=== PATIENT | female | born 1950 | race Caucasian/White ===

== ENCOUNTER 2019-11-04 09:09 | Outpatient (CLI) | payer MEDICARE, SELFPAY ==
[2019-11-04 09:26] LABS: Basophils Absolute Auto 0.02 K/mm3 (0.00-0.10); Basophils Percent Auto 0.4 % (0.0-1.0); Eosinophils Absolute Auto 0.19 K/mm3 (0.02-0.50); Eosinophils Percent Auto 3.4 % (1.0-6.0); Hematocrit 34.2 % (35.0-42.0); Immature Granulocyte Absolute 0.03 K/mm3 (0.00-0.00); Immature Granulocyte Percent A 0.5 % (0.0-0.0); Lymphocytes Absolute Auto 1.78 K/mm3 (1.10-4.50); Lymphocytes Percent Auto 31.5 % (18.0-42.0); Mean Corpuscular HGB Conc 32.2 g/dL (32.0-36.0); Mean Corpuscular Hemoglobin 33.6 pg (27.0-31.0); Mean Corpuscular Volume 104.6 fL (78.0-102.0); Mean Platelet Volume 9.2 fl (9.2-11.8); Monocytes Absolute Auto 0.72 K/mm3 (0.10-0.90); Monocytes Percent Auto 12.7 % (2.0-11.0); Neutrophils Absolute Auto 2.9 K/mm3 (1.7-7.2); Neutrophils Percent Auto 51.5 % (50.0-70.0); Platelet Count Result 148 K/mm3 (150-420); Red Blood Count 3.27 M/mm3 (4.20-5.40); Red Cell Distribution Width 13.9 % (11.6-14.4); White Blood Count 5.7 K/mm3 (4.8-10.8)
[2019-11-04 10:09] LABS: Alanine Aminotransferase 8 U/L (14-59); Albumin Level 3.4 g/dL (3.4-5.0); Alkaline Phosphatase 100 U/L (46-116); Anion Gap 6.1 mmol/L (7-16); Aspartate Amino Transferase 15 U/L (15-37); Bilirubin,Total 0.2 mg/dL (0.00-1.00); Blood Urea Nitrogen 44 mg/dL (7-18); Calcium 8.1 mg/dL (8.5-10.1); Carbon Dioxide 33 mmol/L (21-32); Chloride 104 mmol/L (98-108); Cholesterol 175 mg/dL (0-200); Estimated Glomerular Filt Rate 39; Glucose 84 mg/dL (70-99); HDL Direct 43 mg/dL (40-60); LDL Cholesterol Calculated 119 mg/dL (<130); Osmolality Calculated 296 mOsm/kg (285-295); Potassium 5.1 mmol/L (3.5-5.1); Sodium 138 mmol/L (136-145); Thyroid Stimulating Hormone 9.18 uIU/mL (0.36-3.74); Total Protein 6.3 g/dL (6.4-8.2); Triglycerides 67 mg/dL (0-150)
[2019-11-06 09:10] LABS: Vitamin D 25 Hydroxy 15 ng/mL (30-100)
== END 2019-11-04 09:10 | disposition home or self-care (01) ==
LOC: CHSLAB 09:13
PROVIDERS: PCP Nurse Practitioner Family; Visit Provider Nurse Practitioner Family
DX: E03.9 Hypothyroidism, unspecified (principal); I10 Essential (primary) hypertension; E55.9 Vitamin D deficiency, unspecified
CPT/HCPCS: 36415; 80053; 80061; 82306; 84443; 85025

== ENCOUNTER 2020-01-12 14:56 | Outpatient (CLI) | payer MEDICARE, MEDICAID, SELFPAY ==
--- NOTE | ~2020-01-12 | XR_ITS ---
EXAMINATION: XR hip RT min 2V EXAM DATE: 01/12/2020 15:25 INDICATION: Fall. Right hip pain. TECHNIQUE: Right hip frontal, 'frog leg' projections for interpretation. Comparison is made to prior examination from 04/29/2014. FINDINGS: Smooth right hip femoral head contour, no radiographic evidence of avascular necrosis. The re is mild right hip primary osteoarthritis. There are no acute fractures or dislocations identified. There is no subcutaneous gas. The soft tissue is unremarkable. Right common and probably interna l iliac arterial stent. There is moderate bilateral sacroiliac joint primary osteoarthritis. IMPRESSION: Mild right hip osteoarthritis. Reviewed, dictated and finalized at location A.
[2020-01-12 15:13] LABS: Basophils Absolute Auto 0.03 K/mm3 (0.00-0.10); Basophils Percent Auto 0.6 % (0.0-1.0); Eosinophils Absolute Auto 0.08 K/mm3 (0.02-0.50); Eosinophils Percent Auto 1.6 % (1.0-6.0); Hematocrit 34.7 % (35.0-42.0); Hemoglobin 11.4 g/dL (11.7-13.8); Immature Granulocyte Absolute 0.02 K/mm3 (0.00-0.00); Immature Granulocyte Percent A 0.4 % (0.0-0.0); Lymphocytes Absolute Auto 1.38 K/mm3 (1.10-4.50); Lymphocytes Percent Auto 28.4 % (18.0-42.0); Mean Corpuscular HGB Conc 32.9 g/dL (32.0-36.0); Mean Corpuscular Hemoglobin 33.6 pg (27.0-31.0); Mean Corpuscular Volume 102.4 fL (78.0-102.0); Mean Platelet Volume 8.9 fl (9.2-11.8); Monocytes Absolute Auto 0.61 K/mm3 (0.10-0.90); Monocytes Percent Auto 12.6 % (2.0-11.0); Neutrophils Absolute Auto 2.7 K/mm3 (1.7-7.2); Neutrophils Percent Auto 56.4 % (50.0-70.0); Platelet Count Result 148 K/mm3 (150-420); Red Blood Count 3.39 M/mm3 (4.20-5.40); Red Cell Distribution Width 12.9 % (11.6-14.4); White Blood Count 4.9 K/mm3 (4.8-10.8)
[2020-01-12 16:15] LABS: Albumin Level 3.3 g/dL (3.4-5.0); Alkaline Phosphatase 98 U/L (46-116); Anion Gap 7.6 mmol/L (7-16); Aspartate Amino Transferase 9 U/L (15-37); Bilirubin,Total 0.3 mg/dL (0.00-1.00); Blood Urea Nitrogen 36 mg/dL (7-18); Calcium 8.7 mg/dL (8.5-10.1); Carbon Dioxide 35 mmol/L (21-32); Chloride 97 mmol/L (98-108); Estimated Glomerular Filt Rate 40; Glucose 83 mg/dL (70-99); Magnesium 2.1 mg/dL (1.8-2.4); Osmolality Calculated 287 mOsm/kg (285-295); Potassium 4.6 mmol/L (3.5-5.1); Sodium 135 mmol/L (136-145); Total Protein 6.5 g/dL (6.4-8.2)
[2020-01-12 16:27] LABS: Cholesterol 164 mg/dL (0-200); HDL Direct 38 mg/dL (40-60); LDL Cholesterol Calculated 104 mg/dL (<130); Triglycerides 108 mg/dL (0-150)
[2020-01-12 16:27] LABS: Alanine Aminotransferase 8 U/L (14-59)
[2020-01-12 16:28] LABS: Thyroid Stimulating Hormone 0.85 uIU/mL (0.36-3.74); Vitamin B12 348 pg/mL (193-986)
[2020-01-17 20:24] LABS: Vitamin D 25 Hydroxy 18 ng/mL (30-100)
== END 2020-01-12 14:57 | disposition home or self-care (01) ==
LOC: CHSLAB 15:00
PROVIDERS: PCP Nurse Practitioner Family; Visit Provider Nurse Practitioner Family
DX: M25.551 Pain in right hip (principal); E55.9 Vitamin D deficiency, unspecified; R29.6 Repeated falls; R53.83 Other fatigue; I10 Essential (primary) hypertension
CPT/HCPCS: 36415; 73502; 80053; 80061; 82306; 82607; 83735; 84443; 85025

== ENCOUNTER 2020-02-29 14:14 | Outpatient (CLI) | payer MEDICARE, MEDICAID, SELFPAY ==
--- NOTE | ~2020-02-29 | XR_ITS ---
EXAMINATION: XR shoulder RT min 2V EXAM DATE: 02/29/2020 14:54 INDICATION: No known recent injury provided at this time. Pain of the right shoulder. TECHNIQUE: The following right shoulder projections obtained: frontal projection with internal rotati on, frontal projection with external rotation, Grashey, and scapular Y view (4+ views). There is no prior study for comparison. FINDINGS: No evidence of right shoulder rotator cuff calcific tendinosis. There is mild acromiocla vicular joint primary osteoarthritis. There are no acute fractures or dislocations identified. There is no subcutaneous gas. The soft tissue is unremarkable. There are no radiopaque foreign bodies. IMPRESSION: Mild right upper mid clavicular osteoarthritis. Reviewed, dictated and finalized at location A.
--- NOTE | ~2020-02-29 | XR_ITS ---
EXAMINATION: XR hip RT min 2V EXAM DATE: 02/29/2020 14:54 INDICATION: Right hip pain. TECHNIQUE: Right hip frontal, 'frog leg' projections for interpretation. Comparison is made to prior examination from 01/12/2020. FINDINGS: Smooth right hip femoral head contour, no radiographic evidence of avascular necrosis. The re is mild right hip primary osteoarthritis. There are no acute fractures or dislocations identified. There is no subcutaneous gas. The soft tissue is unremarkable. Right iliac stent. IMPRESSION: 1. XR hip RT min 2V exam without acute osseous findings. 2. Mild osteoarthritis. Reviewed, dictated and finalized at location A.
== END 2020-02-29 14:15 | disposition home or self-care (01) ==
LOC: CHSIMG 14:17
PROVIDERS: PCP Family Medicine; Visit Provider Nurse Practitioner Family
DX: M25.511 Pain in right shoulder (principal); M25.551 Pain in right hip
CPT/HCPCS: 73030; 73502

== ENCOUNTER 2020-03-03 14:09 | Outpatient (CLI) | payer MEDICARE, MEDICAID, SELFPAY ==
[2020-03-03 15:18] LABS: Anion Gap 9.7 mmol/L (7-16); Blood Urea Nitrogen 39 mg/dL (7-18); Calcium 8.5 mg/dL (8.5-10.1); Carbon Dioxide 30 mmol/L (21-32); Chloride 102 mmol/L (98-108); Estimated Glomerular Filt Rate 34; Glucose 83 mg/dL (70-99); Osmolality Calculated 290 mOsm/kg (285-295); Potassium 5.7 mmol/L (3.5-5.1); Sodium 136 mmol/L (136-145)
== END 2020-03-03 14:10 | disposition home or self-care (01) ==
LOC: CHSLAB 14:13
PROVIDERS: PCP Family Medicine; Visit Provider Family Medicine
DX: I10 Essential (primary) hypertension (principal)
CPT/HCPCS: 36415; 80048

== ENCOUNTER 2020-07-20 18:41 | Emergency (ER) | payer MEDICARE, MEDICAID, SELFPAY | END 2020-07-20 19:26 | disposition left against medical advice (07) | LOC: CHSED 18:46 | PROVIDERS: Emergency Provider Emergency Medicine; PCP Family Medicine | DX: Z53.8 Procedure and treatment not carried out for other reasons (principal) | CPT/HCPCS: 99199 ==

== ENCOUNTER 2020-07-21 14:50 | Outpatient (CLI) | payer MEDICARE, SELFPAY ==
[2020-07-21 15:20] LABS: SARS-CoV-2 Ag Negative (Negative)
== END 2020-07-21 14:51 | disposition home or self-care (01) ==
LOC: CHSLAB 14:55
PROVIDERS: PCP Physician Assistant; Visit Provider Physician Assistant
DX: B34.9 Viral infection, unspecified (principal); Z20.828 Contact with and (suspected) exposure to other viral communicable diseases
CPT/HCPCS: 87426

== ENCOUNTER 2020-08-15 18:16 | Emergency (ER) | payer MEDICARE, MEDICAID, SELFPAY ==
--- NOTE | ~2020-08-15 | XR_ITS ---
EXAMINATION: XR chest 1V portable EXAM DATE: 08/15/2020 19:17 INDICATION: Cough, lower extremity swelling, wheezing. History of CHF and COPD. TECHNIQUE: Portable AP frontal chest x-ray was obtained. Comparison is made to prior examination from 07/14/19. FINDINGS: The lungs are clear. There are no pleural effusions. Cardiac silhouette is prominent but magnified on this AP technique. There is no pneumothorax suspected. The bones and soft tissues are unremarkable. IMPRESSION: No acute cardiopulmonary findings. Reviewed, dictated and finalized at location A. LE WORKER
[2020-08-15 18:30] VITALS: BP 175/73; PULSE 68; RESP 16; TEMP 36.8; O2SAT 98
--- NOTE | 2020-08-15 18:43 | ED.URI ---
HPI - URI/Sore Throat General Chief Complaint: Upper Respiratory Infection Stated Complaint: SOB cough,sores in nose Time Seen by Provider: 08/15/20 18:43 Source: patient Mode of arrival: ambulatory Limitations: no limitations History of Present Illness HPI Narrative: 69-year-old woman with a history of COPD and congestive heart failure comes to the emergency department complaining of a nonproductive cough, leg swelling and body aches present for the last few days. she also had an episode of vomiting yesterday morning and none since. Patient states that she saw her doctor and was prescribed antibiotic and steroid but her symptoms did not get any better. [Those medications were prescribed on July 20.] She states that her house has been cold because it is poorly insulated and that her landlord is a slum lord. She denies any sick exposures and has had no more shortness of breath than usual, chest pain, fever, diarrhea, abdominal pain or dysuria. She states she currently alternates between 1 and 2 tablets of furosemide daily. she has had the flu vaccine this year. MD elicited complaint: cough and nasal congestion Pertinent past history: COPD Onset (ago): day(s) (3) Consistency: constant and progressively worsening Severity: moderate Description of mucous: clear Able to tolerate fluids by mouth: Yes Exacerbating factors: nothing Relieving factors: nothing Associated symptoms: rhinorrhea, nasal congestion and cough Treatments prior to arrival: none Related Data Home Medications Medication Instructions Recorded Confirmed acetaminophen 650 mg 650 mg PO Q8H 07/01/19 08/15/20 tablet,extended release clopidogrel 75 mg tablet 75 mg PO DAILY 07/01/19 08/15/20 isosorbide mononitrate 30 mg 30 mg PO DAILY 07/01/19 08/15/20 tablet,extended release 24 hr metoprolol succinate 50 mg 50 mg PO DAILY 07/01/19 08/15/20 tablet,extended release 24 hr ranolazine 1,000 mg 1,000 mg PO BID tablet 07/01/19 08/15/20 tablet,extended release,12 hr clonazepam 0.5 mg tablet 0.25 mg PO DAILY tablet 05/02/20 08/15/20 duloxetine 60 mg capsule,delayed 120 mg PO BID cap 05/02/20 08/15/20 release lamotrigine 100 mg tablet 100 mg PO BID 05/02/20 08/15/20 Allergies Allergy/AdvReac Type Severity Reaction Status Date / Time desipramine Allergy Severe Throat Verified 05/04/20 09:56 swelling amlodipine Allergy Intermediate Unknown Verified 05/04/20 09:56 bupropion Allergy Intermediate Hives / Verified 05/04/20 09:56 Red Face Penicillins Allergy Intermediate Unknown Verified 05/04/20 09:56 Wddhlpc-Xvc-Auy Reductase Allergy Intermediate muscle Verified 05/04/20 09:56 Inhibitor pain atorvastatin AdvReac leg cramps Verified 05/04/20 09:56 Contrast Media Allergy Severe Anaphylactic Uncoded 05/04/20 09:56 Shock IV dye Allergy Intermediate Unknown Uncoded 05/04/20 09:56 Sulfonamides Allergy Intermediate Unknown Uncoded 05/04/20 09:56 Review of Systems Constitutional: Constitutional: Denies chills, Denies fatigue, Denies fever(s) and Denies weakness ENT: Denies dysphagia, Reports nasal congestion and Denies sore throat Cardiovascular: Cardiovascular: Denies chest pain Respiratory: Respiratory: Reports chest congestion, Reports cough, Reports dyspnea ( Chronic) and Reports wheezing Gastrointestinal: Gastrointestinal: Denies abdominal pain, Denies diarrhea, Denies nausea and Reports vomiting Genitourinary: Genitourinary: Denies hematuria, Denies nocturia and Denies dysuria Musculoskeletal: Musculoskeletal: Denies arthralgias and Denies joint swelling Integumentary/Breasts: Skin/Breast: Denies pruritus, Denies erythema and Denies rash Neurologic: Denies vertigo, Denies dizziness and Denies syncope Endocrine: Endocrine: Denies polydipsia and Denies polyuria Hematologic/Lymphatic: Hematologic/Lymphatic: Denies easy bleeding and Denies easy bruising Allergic/Immunologic: Allergic/Immunologic: Denies lip swelling and Denies
--- NOTE | 2020-08-15 18:58 | ECG_ITS ---
Measurements Intervals [place] Rate: 61 P: 66 MD: 127 QRS: 13 QRSD: 92 T: 69 QT: 469 QTc: 473 Interpretive Statements SINUS RHYTHM PROLONGED QT INTERVAL ABNORMAL ECG Electronically Signed On 08-15-2020 19:25:08 NUMERICAL CONTROL PROGRAMMER by Taiwo Delarosa D.O.
[2020-08-15 19:00] LABS: Influenza Control Valid (Valid); SARS-CoV-2 Ag Negative (Negative)
[2020-08-15 19:11] LABS: Basophils Absolute Auto 0.03 K/mm3 (0.00-0.10); Basophils Percent Auto 0.5 % (0.0-1.0); Eosinophils Absolute Auto 0.09 K/mm3 (0.02-0.50); Eosinophils Percent Auto 1.5 % (1.0-6.0); Hematocrit 32.8 % (35.0-42.0); Hemoglobin 10.6 g/dL (11.7-13.8); Immature Granulocyte Absolute 0.03 K/mm3 (0.00-0.00); Immature Granulocyte Percent A 0.5 % (0.0-0.0); Lymphocytes Absolute Auto 1.82 K/mm3 (1.10-4.50); Lymphocytes Percent Auto 30.1 % (18.0-42.0); Mean Corpuscular HGB Conc 32.3 g/dL (32.0-36.0); Mean Corpuscular Hemoglobin 33.2 pg (27.0-31.0); Mean Corpuscular Volume 102.8 fL (78.0-102.0); Monocytes Absolute Auto 0.83 K/mm3 (0.10-0.90); Monocytes Percent Auto 13.7 % (2.0-11.0); Neutrophils Absolute Auto 3.2 K/mm3 (1.7-7.2); Neutrophils Percent Auto 53.7 % (50.0-70.0); Platelet Count Result 146 K/mm3 (150-420); Red Blood Count 3.19 M/mm3 (4.20-5.40); Red Cell Distribution Width 12.8 % (11.6-14.4)
[2020-08-15 19:26] LABS: Partial Thromboplastin Time 27.6 SEC (23.90-30.70); Prothrombin Time 10.6 Seconds (9.50-12.10)
[2020-08-15 19:30] LABS: BNP 373 pg/mL (0-100)
[2020-08-15 19:31] LABS: Alanine Aminotransferase 10 U/L (14-59); Albumin Level 3.5 g/dL (3.4-5.0); Alkaline Phosphatase 91 U/L (46-116); Anion Gap 7 mmol/L (8-16); Aspartate Amino Transferase 13 U/L (15-37); Bilirubin,Total 0.4 mg/dL (0.00-1.00); Blood Urea Nitrogen 26 mg/dL (7-18); Calcium 9.3 mg/dL (8.5-10.1); Carbon Dioxide 28 mmol/L (21-32); Chloride 100 mmol/L (98-108); Estimated Glomerular Filt Rate 44; Glucose 85 mg/dL (70-99); Osmolality Calculated 283 mOsm/kg (285-295); Potassium 4.2 mmol/L (3.5-5.1); Sodium 135 mmol/L (136-145); Troponin I 12.7 ng/L (0.00-60.4)
[2020-08-15 20:05] LABS: Add Urine Microscopic? YES; Appearance Urine Clear (Clear); Bilirubin Urine Negative (Negative); Blood Urine Negative (Negative); Color Urine Yellow (Yellow); Glucose Urine UA Negative (Negative); Ketones Urine Negative (Negative); Leukocyte Esterase Ur Trace LEU/UL (Negative); Nitrate Urine Negative (Negative); Protein Urine Negative (Negative); Specific Grav Ur 1.015 (1.010-1.020); Urobilinogen Urine 0.2 mg/dL (0.2-1.0)
[2020-08-15 20:10] LABS: Bacteria Urine Trace /hpf; RBC Urine 0-2 /hpf (0-2); Squamous Epithelial Cell Urine Few /hpf (Few); WBC Urine 0-3 /hpf (0-3)
[2020-08-15 20:13] VITALS: BP 175/56; PULSE 63; RESP 20; TEMP 36.9; O2SAT 96
== END 2020-08-15 20:33 | disposition home or self-care (01) ==
PROVIDERS: Emergency Provider Emergency Medicine; PCP Physician Assistant
DX: J20.9 Acute bronchitis, unspecified (principal); R60.0 Localized edema; I50.9 Heart failure, unspecified; J44.9 Chronic obstructive pulmonary disease, unspecified; Z86.718 Personal history of other venous thrombosis and embolism; I10 Essential (primary) hypertension; F17.200 Nicotine dependence, unspecified, uncomplicated
CPT/HCPCS: 36415; 71045; 80053; 81001; 83880; 84484; 85025; 85610; 85730; 87426; 87804; 93005; 99283; 99284; C9803

== ENCOUNTER 2020-11-17 14:01 | Outpatient (NON) | payer MEDICARE, SELFPAY ==
[2020-11-17 14:19] LABS: Hematocrit 33.4 % (35.0-42.0); Hemoglobin 10.6 g/dL (11.7-13.8); Mean Corpuscular HGB Conc 31.7 g/dL (32.0-36.0); Mean Corpuscular Hemoglobin 33.4 pg (27.0-31.0); Mean Corpuscular Volume 105.4 fL (78.0-102.0); Mean Platelet Volume 10.2 fl (9.2-11.8); Platelet Count Result 217 K/mm3 (150-420); Red Blood Count 3.17 M/mm3 (4.20-5.40); Red Cell Distribution Width 14.5 % (11.6-14.4); White Blood Count 5.9 K/mm3 (4.8-10.8)
[2020-11-17 14:34] LABS: BNP 563 pg/mL (0-100)
[2020-11-17 15:10] LABS: Atypical Lymphocytes Present
[2020-11-17 15:11] LABS: Band Neutrophils Percent 0 % (0-6); Eosinophils Percent Manual 12 % (1-6); Lymphocytes Absolute Manual 1.41 K/mm3 (1.1-4.5); Lymphocytes Percent Manual 24 % (18-44); Monocytes Absolute Manual 0.35 K/mm3 (0.1-0.90); Monocytes Percent Manual 6 % (3-9); Neutrophils Absolute Manual 3.42 K/mm3 (1.7-7.2); Neutrophils Percent Manual 58 % (46-73); Platelet Estimate Adequate (Adequate); Total Cells Counted 100
== END 2020-11-17 14:02 | disposition home or self-care (01) ==
LOC: CHSLAB 14:02
PROVIDERS: Visit Provider Physician Assistant
DX: I10 Essential (primary) hypertension (principal); I50.9 Heart failure, unspecified
CPT/HCPCS: 36415; 83880; 85025; 85027

== ENCOUNTER 2021-03-09 12:26 | Outpatient (CLI) | payer MEDICARE, MEDICAID, SELFPAY ==
--- NOTE | ~2021-03-09 | CT_ITS ---
EXAMINATION: CT lung screening DATE: 03/09/2021 13:00 INDICATION: Personal history of tobacco dependence, current smoker with 47 pack year history TECHNIQUE: Computed tomography (CT) of the chest was performed without intravenous contrast. The dose -length product (DLP) was 93.31 mGy-cm. Automated exposure control and iterative reconstruction techn ique were employed. COMPARISON: None FINDINGS: There is mild emphysema. Minimal atelectasis is present in the lung bases. No suspicious pu lmonary nodules are identified. The lungs are free of focal airspace opacities. There is no pleural e ffusion or pneumothorax. No pathologically enlarged thoracic lymph nodes are identified. The heart si ze is normal. There is enlargement of the main and central pulmonary arteries, consistent with pulmon mayda hypertension. Calcified coronary artery atherosclerosis is noted. There is moderate thoracic spon dylosis. IMPRESSION: 1. Lung-RADS category 1: Negative. Continue annual screening with noncontrast low-dose chest CT in 12 months. Reviewed, dictated and finalized at location A. IMPRESSION: 1. Lung-RADS category 1: Negative. Continue annual screening with noncontrast l ow-dose chest CT in 12 months.
== END 2021-03-09 12:27 | disposition home or self-care (01) ==
LOC: CHSIMG 12:33
PROVIDERS: PCP Physician Assistant; Visit Provider Physician Assistant
DX: Z12.2 Encounter for screening for malignant neoplasm of respiratory organs (principal); Z87.891 Personal history of nicotine dependence
CPT/HCPCS: 71271

== ENCOUNTER 2021-04-24 15:41 | Outpatient (CLI) | payer MEDICARE, SELFPAY ==
[2021-04-24 17:13] LABS: SARS-CoV-2 RNA PCR Negative (Negative)
== END 2021-04-24 15:42 | disposition home or self-care (01) ==
LOC: CHSLAB 15:44
PROVIDERS: PCP Physician Assistant; Visit Provider Physician Assistant
DX: Z20.822 Contact with and (suspected) exposure to COVID-19 (principal)
CPT/HCPCS: C9803; U0003; U0005

== ENCOUNTER 2021-08-30 08:54 | Outpatient (CLI) | payer MEDICARE, SELFPAY ==
[2021-08-31 21:56] LABS: SARS-CoV-2 RNA PCR Negative
== END 2021-08-30 08:55 | disposition home or self-care (01) ==
LOC: CHSLAB 08:58
PROVIDERS: PCP Physician Assistant; Visit Provider Physician Assistant
DX: B34.9 Viral infection, unspecified (principal); Z20.822 Contact with and (suspected) exposure to COVID-19
CPT/HCPCS: C9803; U0003; U0005

== ENCOUNTER 2021-09-06 09:11 | Emergency (ER) | payer MEDICARE, MEDICAID, SELFPAY ==
--- NOTE | ~2021-09-06 | CT_ITS ---
EXAMINATION: CT brain wo con, CT facial bones wo con EXAM DATE: 09/06/2021 09:55 INDICATION: Head Injury Fall,Rt Side Hi/Face,?Confusion/Slow To Respond. TECHNIQUE: Spiral CT of the head was performed without contrast. Axial, coronal and sagittal images were reviewed. Spiral CT of the facial bones was performed without contrast. Axial images were revie wed. Coronal and sagittal reformatted images were also reviewed. The dose-length product (DLP) for this examination was 605.33 (accession [id number]), 422.92 (accession [id number]) mGy-cm. Th e exposure was tailored according to patient size, and iterative reconstruction (ASIR) was used as ad ditional dose reduction technique. Comparison is made to prior examination from 12/17/2016. FINDINGS: HEAD CT: There is no acute intraparenchymal hemorrhage. No evidence of intraparenchymal brain mass lesion. No evidence of acute infarction. There is mild to moderate periventricular and subcortical h ypodensity, nonspecific but probably related to small vessel ischemic disease. There is mild to mod erate prominence of the sulci and ventricles related to cerebral atrophy. There is no mass effect o r midline shift. There is no obstructive hydrocephalus suspected. There are no extra-axial collectio ns. There are no calvarial acute fractures. FACIAL CT: There are no displaced acute nasal bone fractures. The mandible, sinuses and orbits are i ntact. The orbits, globes and extraocular muscles are unremarkable. Soft tissue is unremarkable. The visualized sinuses and mastoid air cells are well aerated. Advanced upper cervical arthropathy. IMPRESSION: 1. No acute intracranial findings. 2. No acute facial fracture. 3. Microangiopathy and atrophy. Reviewed, dictated and finalized at location A. ETES CLINICAL MANAGER IMPRESSION: 1. No acute intracranial findings. 2. No acute facial fracture. 3. Microangiopathy and atrophy.
[2021-09-06 09:25] VITALS: BP 172/53; PULSE 45; RESP 20; TEMP 36.1; O2SAT 98
--- NOTE | 2021-09-06 09:28 | ED.FALL ---
HPI - Fall General Chief Complaint: Fall Stated Complaint: AMBULANCE Time Seen by Provider: 09/06/21 09:29 Source: patient and family Mode of arrival: EMS Limitations: no limitations History of Present Illness HPI Narrative: this is a 71-year-old female who presents from home after she had a ground level fall, the patient states that she tripped on her shoe laces and struck the side of her head and right side of her face there is some some bruising on the right side of her cheek otherwise there is no neurological deficits the patient is not complaining of any pain currently, there is no nausea vomiting no shortness of breath no fever chills. Patient states that no other injuries. There is no dysuria no urinary frequency no abdominal pain no chest pain no shortness of breath no flank pain. MD complaint: fall Onset (ago): hour(s) Fall from: standing Fall witnessed: no Place fall occurred: home Loss of consciousness: none Prolonged down time: no Symptoms prior to fall: none Context: tripped/slipped Related Data Home Medications Medication Instructions Recorded Confirmed acetaminophen 650 mg 650 mg PO Q8H 07/01/19 08/15/20 tablet,extended release clopidogrel 75 mg tablet 75 mg PO DAILY 07/01/19 08/15/20 isosorbide mononitrate 30 mg 30 mg PO DAILY 07/01/19 08/15/20 tablet,extended release 24 hr metoprolol succinate 50 mg 50 mg PO DAILY 07/01/19 08/15/20 tablet,extended release 24 hr ranolazine 1,000 mg 1,000 mg PO BID tablet 07/01/19 08/15/20 tablet,extended release,12 hr clonazepam 0.5 mg tablet 0.25 mg PO DAILY tablet 05/02/20 08/15/20 duloxetine 60 mg capsule,delayed 120 mg PO BID cap 05/02/20 08/15/20 release lamotrigine 100 mg tablet 100 mg PO BID 05/02/20 08/15/20 levothyroxine 175 mcg PO DAILY 09/06/21 Allergies Allergy/AdvReac Type Severity Reaction Status Date / Time desipramine Allergy Severe Throat Verified 09/06/21 10:39 swelling amlodipine Allergy Intermediate Unknown Verified 09/06/21 10:39 bupropion Allergy Intermediate Hives / Verified 09/06/21 10:39 Red Face Penicillins Allergy Intermediate Unknown Verified 09/06/21 10:39 Yvfksjf-ZJI-LpD Reductase Allergy Intermediate muscle Verified 09/06/21 10:39 Inhibitor pain [Cxvaidq-Mlj-Jjp Reductase Inhibitor] atorvastatin AdvReac leg cramps Verified 09/06/21 10:39 Contrast Media Allergy Severe Anaphylactic Uncoded 09/06/21 10:39 Shock IV dye Allergy Intermediate Unknown Uncoded 09/06/21 10:39 Sulfonamides Allergy Intermediate Unknown Uncoded 09/06/21 10:39 Review of Systems Review of Systems: All systems reviewed & are unremarkable except as noted in HPI and below PMFSH Past Medical History Medical History (Updated 09/06/21 @ 10:42 by Kushal Phillips MD) Bipolar disorder Congestive heart failure Conjunctivitis COPD (chronic obstructive pulmonary disease) COPD with acute exacerbation Fibromyalgia Generalized anxiety disorder Hand joint pain History of DVT (deep vein thrombosis) History of [place] (myocardial infarction) 3-4 Stents HTN (hypertension) Maxillary sinusitis, acute Myocardial infarct, old Nicotine dependence Overweight Parkinson disease RUQ abdominal pain Shortness of breath Sleep apnea Surgical History Surgical History History of adenoidectomy History of intravascular stent placement 3-[address], per patient History of tonsillectomy Hx of hysterectomy Hx of tubal ligation Family History Family History Mother Depression Kidney disease Carcinoma of colon Heart disease Diabetes mellitus Father Alcoholism Social History Social History Social History: , patient enjoys singing Smoking packs per day: 1 Smoking cigarettes per day: 20.0 Years smoked: 47 Smoking pack-years: 47.00 Smoking sta
[2021-09-06 10:08] LABS: Basophils Absolute Auto 0.02 K/mm3 (0.00-0.10); Basophils Percent Auto 0.3 % (0.0-1.0); Eosinophils Absolute Auto 0.04 K/mm3 (0.02-0.50); Eosinophils Percent Auto 0.6 % (1.0-6.0); Hemoglobin 11.6 g/dL (11.7-13.8); Immature Granulocyte Absolute 0.04 K/mm3 (0.00-0.00); Immature Granulocyte Percent A 0.6 % (0.0-0.0); Lymphocytes Absolute Auto 1.33 K/mm3 (1.10-4.50); Lymphocytes Percent Auto 18.9 % (18.0-42.0); Mean Corpuscular HGB Conc 33.1 g/dL (32.0-36.0); Mean Corpuscular Hemoglobin 33.4 pg (27.0-31.0); Mean Corpuscular Volume 100.9 fL (78.0-102.0); Mean Platelet Volume 8.7 fl (9.2-11.8); Monocytes Absolute Auto 0.67 K/mm3 (0.10-0.90); Monocytes Percent Auto 9.5 % (2.0-11.0); Neutrophils Percent Auto 70.1 % (50.0-70.0); Platelet Count Result 130 K/mm3 (150-420); Red Blood Count 3.47 M/mm3 (4.20-5.40); White Blood Count 7.1 K/mm3 (4.8-10.8)
[2021-09-06 10:24] LABS: Alanine Aminotransferase 9 U/L (14-59); Albumin Level 3.8 g/dL (3.4-5.0); Alkaline Phosphatase 84 U/L (46-116); Anion Gap 5 mmol/L (8-16); Aspartate Amino Transferase 16 U/L (15-37); Bilirubin,Total 0.7 mg/dL (0.00-1.00); Blood Urea Nitrogen 22 mg/dL (7-18); Calcium 8.8 mg/dL (8.5-10.1); Carbon Dioxide 33 mmol/L (21-32); Chloride 94 mmol/L (98-108); Estimated Glomerular Filt Rate 36; Glucose 97 mg/dL (70-99); Osmolality Calculated 277 mOsm/kg (285-295); Potassium 4.3 mmol/L (3.5-5.1); Sodium 132 mmol/L (136-145); Total Protein 7.4 g/dL (6.4-8.2)
[2021-09-06 10:55] VITALS: BP 196/73; PULSE 48; RESP 20; TEMP 36.2; O2SAT 97
== END 2021-09-06 11:07 | disposition home or self-care (01) ==
PROVIDERS: Emergency Provider Emergency Medicine; PCP Physician Assistant
DX: S00.83XA Contusion of other part of head, initial encounter (principal); W19.XXXA Unspecified fall, initial encounter; I50.9 Heart failure, unspecified; J44.9 Chronic obstructive pulmonary disease, unspecified; Z86.718 Personal history of other venous thrombosis and embolism; I10 Essential (primary) hypertension; F17.200 Nicotine dependence, unspecified, uncomplicated
CPT/HCPCS: 36415; 70450; 70486; 80053; 85025; 99282; 99284

== ENCOUNTER 2021-09-07 17:11 | Inpatient (IN) | payer MEDICARE, MEDICAID, SELFPAY ==
--- NOTE | ~2021-09-07 | XR_ITS ---
XR pelvis 1-2V DATE: 09/07/2021 18:10 INDICATION: Right hip pain after fall today TECHNIQUE: AP pelvis COMPARISON: 02/29/2020 right hip FINDINGS: No pelvic fracture or bone destruction is detected. The pubic symphysis and sacroiliac join ts are intact. Hip joint spaces are symmetric and relatively well preserved. No right hip fracture or dislocation is evident. Right common and external iliac vascular stents. There is extensive calcification of the included dis henrry abdominal aorta and left iliac arteries as well as bilateral femoral artery calcification. IMPRESSION: No right hip fracture is evident on this limited single AP pelvis view Reviewed, dictated and finalized at location A. MAL CUTTER HELPER IMPRESSION: No right hip fracture is evident on this limited single AP pelvis v iew
--- NOTE | ~2021-09-07 | XR_ITS ---
XR chest 1V portable DATE: 09/07/2021 18:09 INDICATION: Fall. Weakness. TECHNIQUE: Portable AP chest on 09/07/2021 at 1804 hours COMPARISON: 08/15/2020 portable AP chest 03/09/2021 CT lung screening FINDINGS: Normal heart size. Aortic arch calcification. No hilar or mediastinal enlargement is eviden t. No pulmonary infiltrate or consolidation, pleural effusion or pulmonary vascular congestion or pneumo thorax is detected. Degenerative spurring of the thoracic spine IMPRESSION: No active cardiopulmonary disease Aortic calcification Reviewed, dictated and finalized at location A. AL MANAGER
--- NOTE | 2021-09-07 17:18 | ED.FALL ---
HPI - Fall General Chief Complaint: Fall Stated Complaint: ambulance Time Seen by Provider: 09/07/21 17:18 Source: patient Mode of arrival: ambulatory History of Present Illness HPI Narrative: 71-year-old female with a history of hypertension, coronary artery status post stents, CHF, COPD, fibromyalgia generalized anxiety disorder, DVT, YULIYA, parkinsonism falls presented to the ER after a fall yesterday with right facial bruising for which she had a CT of the head and face which did not show any acute findings. Patient presents to the ER after she fell on her buttocks and presents with -- right hip pain. patient has normal range of motion. -- patient is noted to have elevated blood pressure of 227/81. -- Complains of dizziness without any focal neuro deficit. No head injury. No neck or back pain. MD complaint: fall Onset (ago): hour(s) ( Fell 1-1/2 hours ago.) Fall from: standing Fall witnessed: no Place fall occurred: home Loss of consciousness: none Prolonged down time: no Symptoms prior to fall: none Context: history of frequent falls Location of injury: other ( Right hip pain ) Severity: mild Associated symptoms (after fall): other ( complains of dizziness.) Related Data Home Medications Medication Instructions Recorded Confirmed acetaminophen 650 mg 650 mg PO Q8H 07/01/19 09/07/21 tablet,extended release clopidogrel 75 mg tablet 75 mg PO DAILY 07/01/19 09/07/21 isosorbide mononitrate 30 mg 30 mg PO DAILY 07/01/19 09/07/21 tablet,extended release 24 hr metoprolol succinate 50 mg 50 mg PO DAILY 07/01/19 09/07/21 tablet,extended release 24 hr ranolazine 1,000 mg 1,000 mg PO BID tablet 07/01/19 09/07/21 tablet,extended release,12 hr clonazepam 0.5 mg tablet 0.25 mg PO DAILY tablet 05/02/20 09/07/21 duloxetine 60 mg capsule,delayed 120 mg PO BID cap 05/02/20 09/07/21 release lamotrigine 100 mg tablet 100 mg PO BID 05/02/20 09/07/21 levothyroxine 175 mcg PO DAILY 09/06/21 09/07/21 Allergies Allergy/AdvReac Type Severity Reaction Status Date / Time desipramine Allergy Severe Throat Verified 09/07/21 17:32 swelling amlodipine Allergy Intermediate Unknown Verified 09/07/21 17:32 bupropion Allergy Intermediate Hives / Verified 09/07/21 17:32 Red Face Penicillins Allergy Intermediate Unknown Verified 09/07/21 17:32 Xzbngnl-EMT-EtX Reductase Allergy Intermediate muscle Verified 09/07/21 17:32 Inhibitor pain [Pqyljrn-Tvt-Hmu Reductase Inhibitor] atorvastatin AdvReac leg cramps Verified 09/07/21 17:32 Contrast Media Allergy Severe Anaphylactic Uncoded 09/06/21 10:39 Shock IV dye Allergy Intermediate Unknown Uncoded 09/06/21 10:39 Sulfonamides Allergy Intermediate Unknown Uncoded 09/06/21 10:39 Review of Systems Review of Systems: All systems reviewed & are unremarkable except as noted in HPI and below Constitutional: Constitutional: Reports as per HPI and Reports no additional constitutional complaints Eyes: Eyes: Reports as per HPI and Reports no additional eye complaints ENT: Reports system reviewed and no additional complaints, except as documented Cardiovascular: Cardiovascular: Reports as per HPI and Reports no additional cardiovascular complaints Respiratory: Respiratory: Reports as per HPI and Reports no additional respiratory complaints Gastrointestinal: Gastrointestinal: Reports as per HPI and Reports no additional gastrointestinal complaints Musculoskeletal: Comments: Right hip pain. Integumentary/Breasts: Comments: Multiple bruises of different ages. She has bruises over her right side of the face and extremities. Neurologic: Reports system reviewed and no additional complaints, except as documented and Reports dizziness Psychiatric: Psychiatric: Reports no additional psychiatric complaints Endocrine: Endocrine: Reports no additional endocrine complaints Hematologic/Lymphatic: Hematologic/Lymphatic: Reports no additional hematologic/lymphatic com
[2021-09-07 17:22] VITALS: BP 227/81; PULSE 58; RESP 18; TEMP 35.7; O2SAT 98
--- NOTE | 2021-09-07 17:47 | ECG_ITS ---
Measurements Intervals [place] Rate: 56 P: 74 MD: 113 QRS: 25 QRSD: 95 T: 49 QT: 460 QTc: 447 Interpretive Statements SINUS BRADYCARDIA WITH SHORT MD INTERVAL BORDERLINE ST ABNORMALITY- INF/HIGH LAT LEADS BASELINE ARTIFACT- I, II, AVR, AVL, AVF, V2-V3 BORDERLINE ECG Electronically Signed On 09-07-2021 20:57:27 PROJECT ENG by Taiwo Delarosa D.O.
[2021-09-07] MEDS: cloNIDine HCL 0.1 MG TABLET PO (17:55)
[2021-09-07 18:04] LABS: Basophils Absolute Auto 0.03 K/mm3 (0.00-0.10); Basophils Percent Auto 0.5 % (0.0-1.0); Eosinophils Absolute Auto 0.06 K/mm3 (0.02-0.50); Hematocrit 33.9 % (35.0-42.0); Hemoglobin 11.3 g/dL (11.7-13.8); Immature Granulocyte Absolute 0.02 K/mm3 (0.00-0.00); Immature Granulocyte Percent A 0.3 % (0.0-0.0); Lymphocytes Absolute Auto 1.53 K/mm3 (1.10-4.50); Lymphocytes Percent Auto 25.9 % (18.0-42.0); Mean Corpuscular HGB Conc 33.3 g/dL (32.0-36.0); Mean Corpuscular Hemoglobin 33.3 pg (27.0-31.0); Mean Platelet Volume 9.5 fl (9.2-11.8); Monocytes Absolute Auto 0.67 K/mm3 (0.10-0.90); Monocytes Percent Auto 11.3 % (2.0-11.0); Neutrophils Absolute Auto 3.6 K/mm3 (1.7-7.2); Platelet Count Result 136 K/mm3 (150-420); Red Blood Count 3.39 M/mm3 (4.20-5.40); Red Cell Distribution Width 14.8 % (11.6-14.4); White Blood Count 5.9 K/mm3 (4.8-10.8)
[2021-09-07 18:25] LABS: Alanine Aminotransferase 17 U/L (14-59); Albumin Level 3.9 g/dL (3.4-5.0); Alkaline Phosphatase 83 U/L (46-116); Anion Gap 8 mmol/L (8-16); Aspartate Amino Transferase 20 U/L (15-37); Bilirubin,Total 0.6 mg/dL (0.00-1.00); Blood Urea Nitrogen 25 mg/dL (7-18); Calcium 9.1 mg/dL (8.5-10.1); Carbon Dioxide 31 mmol/L (21-32); Chloride 94 mmol/L (98-108); Estimated CRCL calculation 34 ml/min; Estimated Glomerular Filt Rate 37; Glucose 80 mg/dL (70-99); NT Pro B Type Natriuretic Pept 3175 pg/mL (0-125); Osmolality Calculated 279 mOsm/kg (285-295); Potassium 3.5 mmol/L (3.5-5.1); Sodium 133 mmol/L (136-145); Total Protein 7.5 g/dL (6.4-8.2); Troponin I 18.2 ng/L (0.00-60.4)
[2021-09-07] MEDS: LABETALOL HCL INJ 100 MG/20 ML VIAL 10 MG IV PUSH (18:52)
[2021-09-07 19:09] VITALS: BP 169/69
[2021-09-07 20:00] VITALS: BP 212/81; PULSE 55; RESP 20; TEMP 36.2; O2SAT 95
--- NOTE | 2021-09-07 21:26 | PC.NURSE ---
Patient admitted to room 207 from the ER, is alert and oriented, denies pain at this time, oriented to room and call light, instructed to call before getting up, voices understanding, bed alarm on.
[2021-09-07 21:29] VITALS: BMI 28.8
[2021-09-07] MEDS: RANOLAZINE 500 MG TAB.ER.12H 1000 MG PO (21:47)
[2021-09-07] MEDS: HEPARIN SODIUM 5,000 UNITS/ML VIAL 5000 UNITS SUB-Q (21:52)
[2021-09-07 23:32] LABS: Troponin I 22.1 ng/L (0.00-60.4)
[2021-09-08] VITALS (9 sets, daily range): BP systolic 146–176; BP diastolic 52–78; PULSE 54–72; RESP 14–20; TEMP 35.6–36.4; O2SAT 90–94
[2021-09-08 05:50] LABS: Basophils Absolute Auto 0.03 K/mm3 (0.00-0.10); Basophils Percent Auto 0.6 % (0.0-1.0); Eosinophils Absolute Auto 0.08 K/mm3 (0.02-0.50); Eosinophils Percent Auto 1.6 % (1.0-6.0); Hematocrit 31.2 % (35.0-42.0); Hemoglobin 10.3 g/dL (11.7-13.8); Immature Granulocyte Absolute 0.02 K/mm3 (0.00-0.00); Immature Granulocyte Percent A 0.4 % (0.0-0.0); Immature Platelet Fraction Pct 1.7 % (1.0-7.0); Lymphocytes Absolute Auto 1.71 K/mm3 (1.10-4.50); Lymphocytes Percent Auto 35.1 % (18.0-42.0); Mean Corpuscular Hemoglobin 32.9 pg (27.0-31.0); Mean Corpuscular Volume 99.7 fL (78.0-102.0); Mean Platelet Volume 9.6 fl (9.2-11.8); Monocytes Absolute Auto 0.57 K/mm3 (0.10-0.90); Monocytes Percent Auto 11.7 % (2.0-11.0); Neutrophils Absolute Auto 2.5 K/mm3 (1.7-7.2); Neutrophils Percent Auto 50.6 % (50.0-70.0); Platelet Count Result 145 K/mm3 (150-420); Red Blood Count 3.13 M/mm3 (4.20-5.40); Red Cell Distribution Width 14.6 % (11.6-14.4); White Blood Count 4.9 K/mm3 (4.8-10.8)
[2021-09-08 06:00] LABS: Anion Gap 8 mmol/L (8-16); Blood Urea Nitrogen 23 mg/dL (7-18); Calcium 8.4 mg/dL (8.5-10.1); Carbon Dioxide 30 mmol/L (21-32); Chloride 96 mmol/L (98-108); Estimated CRCL calculation 34 ml/min; Estimated Glomerular Filt Rate 40; Glucose 73 mg/dL (70-99); Osmolality Calculated 280 mOsm/kg (285-295); Potassium 3.1 mmol/L (3.5-5.1); Sodium 134 mmol/L (136-145)
[2021-09-08] MEDS: LEVOTHYROXINE SODIUM 100 MCG TABLET PO (06:06)
[2021-09-08] MEDS: LEVOTHYROXINE SODIUM 75 MCG TABLET PO (06:10)
[2021-09-08] MEDS: HEPARIN SODIUM 5,000 UNITS/ML VIAL 5000 UNITS SUB-Q ×2 (06:10→21:32)
[2021-09-08] MEDS: CARBIDOPA/LEVODOPA 25/100 MG CR TABLET 1 TABLET PO ×2 (09:00→21:32)
[2021-09-08] MEDS: MICONAZOLE NITRATE 2% CREAM 30 GM TUBE 1 APPLIC TOPICAL ×2 (09:00→17:59)
[2021-09-08] MEDS: METOPROLOL SUCCINATE EXT REL 50 MG TABCR PO (09:00)
[2021-09-08] MEDS: RANOLAZINE 500 MG TAB.ER.12H 1000 MG PO ×2 (10:00→21:32)
[2021-09-08] MEDS: clonazePAM (*CRX) 0.5 MG TABLET 0.25 MG PO (10:00)
[2021-09-08] MEDS: GABAPENTIN 300 MG CAPSULE PO ×2 (10:01→17:49)
[2021-09-08] MEDS: lamoTRIgine 100 MG TABLET PO ×2 (10:01→17:50)
[2021-09-08] MEDS: FUROSEMIDE 20 MG TABLET BY MOUTH (10:02)
[2021-09-08] MEDS: DOXYCYCLINE HYCLATE 100 MG TABLET PO ×2 (10:02→17:50)
[2021-09-08] MEDS: CLOPIDOGREL BISULFATE 75 MG TABLET PO (10:02)
[2021-09-08] MEDS: ISOSORBIDE MONONITRATE 30 MG TAB.ER.24H PO (10:02)
--- NOTE | 2021-09-08 11:30 | PC.NURSE ---
Howard Brizuela called and message left to notify of PT eval needed on patient.
--- NOTE | 2021-09-08 11:56 | PM.IMHP ---
H&P: HPI History of Present Illness Date/Time: 09/08/21 11:56 this is a 71-year-old female presented to our emergency department status post fall. Patient has a past medical history of bipolar,. Patient has a past medical history of bipolar, congestive heart failure, pancreatitis, COPD,, conjunctivitis, fibromyalgia, generalized anxiety disorder, history of DVT, history of [place], hypertension, nicotine dependence, Parkinson', shortness of breath, sleep apnea, right upper quadrant abdominal pains disease, shortness of breath, and sleep apnea. According to patient 3 days ago her right nasal drainage According to patient that she has been having 3 days ago air her psych meds were changed every since her medication change she has been feeling dizzy her medication resume report of fall. Patient reports 2 reported falls. WBC 7.1 hemoglobin 11.3 hematocrit 35.5 platelet WBC 7.1 hemoglobin 11.6 hematocrit 35.0 platelets 130 5,sodium 132 ,potassium 4.3 ,BUN 22,creatinine 1.45 glucose 97 AST 15 ,total bilirubin 0.7, ALT 9 t,roponin 8.2 0.7 ALT 9 troponin 18.2 ,BNP 3175 imaging of the face , chest and pelvis no new findings . Patient notes that her medication was changed 3 days ago ever since her medication change she has been experiencing dizziness and falls patient notes that her medication was changed 3 days ago ever since her medication change. Will adjust patient medication to previous prescription before medication change. Observation Plan for discharge tomorrow after PT evaluation <DORIS Awad - Last Filed: 09/08/21 12:59> Chief Complaint: dizziness falls <DORIS Awad - Last Filed: 09/08/21 12:59> Review of Systems Review of Systems: A 14 organ system Review of Systems was performed and pertinent positives included in the HPI, otherwise <DORIS Awad - Last Filed: 09/08/21 12:59> [facility] Past Medical History Medical History: Medical History (Updated 09/07/21 @ 19:35 by John Agustin MD) Bipolar disorder Congestive heart failure Conjunctivitis COPD (chronic obstructive pulmonary disease) COPD with acute exacerbation Fibromyalgia Generalized anxiety disorder Hand joint pain History of DVT (deep vein thrombosis) History of [place] (myocardial infarction) 3-4 Stents HTN (hypertension) Maxillary sinusitis, acute Myocardial infarct, old Nicotine dependence Overweight Parkinson disease RUQ abdominal pain Shortness of breath Sleep apnea <DORIS Awad - Last Filed: 09/08/21 12:59> Surgical History Surgical History: Surgical History History of adenoidectomy History of intravascular stent placement 3-[address], per patient History of tonsillectomy Hx of hysterectomy Hx of tubal ligation <DORIS Awad - Last Filed: 09/08/21 12:59> Family History Family History: Family History Mother Depression Kidney disease Carcinoma of colon Heart disease Diabetes mellitus Father Alcoholism <DORIS Awad - Last Filed: 09/08/21 12:59> Social History Social History: Social History Social History: , patient enjoys singing Smoking packs per day: 1 Smoking cigarettes per day: 20.0 Years smoked: 47 Smoking pack-years: 47.00 Smoking status: Current every day smoker Tobacco type: cigarettes Second hand tobacco smoke exposure: No Alcohol intake: never Alcohol use details: very infrequently Substance use: never Substance use type: does not use 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
[2021-09-08] MEDS: DICLOFENAC SODIUM 1% 100 GM GEL (*BKC) TOPICAL ×2 (17:58→21:32)
--- NOTE | 2021-09-08 19:00 | ECG_ITS ---
Measurements Intervals [place] Rate: 51 P: 60 RI: 118 QRS: 9 QRSD: 100 T: 79 QT: 452 QTc: 418 Interpretive Statements SINUS BRADYCARDIA WITH SHORT RI INTERVAL INCOMPLETE RIGHT BUNDLE BRANCH BLOCK BORDERLINE ST-T WAVE ABNORMALITY- ANTEROLAT/HIGH LAT LEADS BASELINE ARTIFACT- I, II, AVR, AVF, V3 BORDERLINE ECG Electronically Signed On 09-08-2021 20:44:42 [employer]IC[employer] by Taiwo Delarosa D.O.
[2021-09-08] MEDS: BUDESONIDE RESPULE NEB 0.5 MG/2 ML AMP INHALATION (19:08)
[2021-09-09] VITALS (10 sets, daily range): BP systolic 130–163; BP diastolic 53–69; PULSE 50–68; RESP 14–20; TEMP 36.1–36.8; O2SAT 91–98
[2021-09-09] MEDS: LEVOTHYROXINE SODIUM 75 MCG TABLET PO (05:37)
[2021-09-09] MEDS: HEPARIN SODIUM 5,000 UNITS/ML VIAL 5000 UNITS SUB-Q ×3 (05:37→21:00)
[2021-09-09] MEDS: LEVOTHYROXINE SODIUM 100 MCG TABLET PO (05:37)
[2021-09-09 06:00] LABS: NT Pro B Type Natriuretic Pept 1853 pg/mL (0-125)
[2021-09-09] MEDS: BUDESONIDE RESPULE NEB 0.5 MG/2 ML AMP INHALATION ×2 (06:18→18:26)
[2021-09-09] MEDS: MICONAZOLE NITRATE 2% CREAM 30 GM TUBE 1 APPLIC TOPICAL ×2 (09:00→18:28)
[2021-09-09] MEDS: DICLOFENAC SODIUM 1% 100 GM GEL (*BKC) TOPICAL ×4 (09:00→20:22)
[2021-09-09] MEDS: CARBIDOPA/LEVODOPA 25/100 MG CR TABLET 1 TABLET PO ×2 (09:00→20:23)
[2021-09-09] MEDS: clonazePAM (*CRX) 0.5 MG TABLET 0.25 MG PO (09:00)
[2021-09-09] MEDS: DULoxetine HCL 30 MG CAPSULE.DR 120 MG PO (09:05)
[2021-09-09] MEDS: DOXYCYCLINE HYCLATE 100 MG TABLET PO ×2 (09:40→18:27)
[2021-09-09] MEDS: GABAPENTIN 300 MG CAPSULE PO ×2 (09:42→18:26)
[2021-09-09] MEDS: RANOLAZINE 500 MG TAB.ER.12H 1000 MG PO ×2 (09:43→20:23)
[2021-09-09] MEDS: lamoTRIgine 100 MG TABLET PO ×2 (09:43→18:27)
[2021-09-09] MEDS: FUROSEMIDE 20 MG TABLET BY MOUTH (09:44)
[2021-09-09] MEDS: CLOPIDOGREL BISULFATE 75 MG TABLET PO (09:44)
--- NOTE | 2021-09-09 10:19 | P.PN_ITS ---
Progress Note: A&P Assessment and Plan (1) Hypertensive urgency: Code(s): I16.0 - Hypertensive urgency <DORIS Awad - Last Filed: 09/09/21 11:00> Status: Acute <DORIS Awad - Last Filed: 09/09/21 11:00> Assessment and Plan: * Patient's blood pressure elevated in the ED patient received 0.1 mg of clonidine and 10 mg labetalol * remain elevated at 163/62 * Continue isosorbide increased fron 60 mg >90 mg , metoprolol decrease to 50>25 due to bradycardia and hydralazine with parameters * vital signs is ordered * will adjust medication as needed * <DORIS Awad - Last Filed: 09/09/21 11:00> (2) Recurrent falls: Code(s): R29.6 - Repeated falls <DORIS Awad - Last Filed: 09/09/21 11:00> Status: Acute <DORIS Awad - Last Filed: 09/09/21 11:00> Assessment and Plan: * Possibly secondary to medication change * PT consult placed * attempts to call pharmacy for medication verification . Patient orders from a mail pharmacy unable to reach today . <DORIS Awad - Last Filed: 09/09/21 11:00> (3) CKD (chronic kidney disease) stage 3, GFR 30-59 ml/min: Qualifiers: Chronic kidney disease stage 3 subtype: stage 3a (GFR 45-59) Qualified Code(s): N18.31 - Chronic kidney disease, stage 3a <DORIS Awad - Last Filed: 09/09/21 11:00> Code(s): N18.30 - Chronic kidney disease, stage 3 unspecified <DORIS Awad - Last Filed: 09/09/21 11:00> Status: Acute <DORIS Awad - Last Filed: 09/09/21 11:00> Assessment and Plan: * BUN/Cr-22/1.45, 25/1.41, 23/1.32 improving improving baseline appe ars to be in baseline appears to be at 26 /130 * avoid Nephrotoxic agent * Renal dose medication renal dose medication <Mis WhaleyEMANI-C - Last Filed: 09/09/21 11:00> (4) Congestive heart failure: Code(s): I50.9 - Heart failure, unspecified <Mis WhaleyEMANI-C - Last Filed: 09/09/21 11:00> Status: Chronic <Mis WhaleyDORIS - Last Filed: 09/09/21 11:00> Assessment and Plan: * chest x-ray does not indicate pulmonary edema * Monitor I&Os and daily weights, reviewed * BNP in am <Usamaestelle KristaEMANI Lomas-Alan - Last Filed: 09/09/21 11:00> (5) COPD (chronic obstructive pulmonary disease): Code(s): J44.9 - Chronic obstructive pulmonary disease, unspecified <Mis Galan Judd OFFICE SUPPORT ASSOCIATE-C - Last Filed: 09/09/21 11:00> Status: Chronic <Mis WhaleyEMANI-Alan - Last Filed: 09/09/21 11:00> Assessment and Plan: * Stable stable * Continue inhalers <Mis VelascoEMANI Lomas-C - Last Filed: 09/09/21 11:00> (6) Generalized anxiety disorder: Code(s): F41.1 - Generalized anxiety disorder <Mis Galan EMANI Whaley-C - Last Filed: 09/09/21 11:00> Status: Chronic <Mis VelascoDORIS Lomas - Last Filed: 09/09/21 11:00> Assessment and Plan: * continue clonazepam <Mis VelascoEMANI Lomas-C - Last Filed: 09/09/21 11:00> (7) Nicotine dependence: Code(s): F17.200 - Nicotine dependence, unspecified, uncomplicated <Mis VelascoEMANI Lomas-C - Last Filed: 09/09/21 11:00> Status: Chronic <Usamaestelle KristaEMANI Lomas-C - Last Filed: 09/09/21 11:00> Assessment and Plan: * Nicotine patch <EMANI Awad-Alan - Last Filed: 09/09/21 11:00> (8) Parkinson disease: Code(s): G20 - Parkinson's disease <Mis Whaley, OFFICE SUPPORT ASSOCIATE-C - Last Filed: 09/09/21 11:00> Status: Ac
--- NOTE | 2021-09-09 10:19 | WPDPN ---
Progress Note: A&P Assessment and Plan (1) Hypertensive urgency: Code(s): I16.0 - Hypertensive urgency <DORIS Awad - Last Filed: 09/09/21 11:00> Status: Acute <DORIS Awad - Last Filed: 09/09/21 11:00> Assessment and Plan: Patient's blood pressure elevated in the ED patient received 0.1 mg of clonidine and 10 mg labetalol remain elevated at 163/62 Continue isosorbide increased fron 60 mg >90 mg , metoprolol decrease to 50>25 due to bradycardia and hydralazine with parameters vital signs is ordered will adjust medication as needed <DORIS Awad - Last Filed: 09/09/21 11:00> (2) Recurrent falls: Code(s): R29.6 - Repeated falls <DORIS Awad - Last Filed: 09/09/21 11:00> Status: Acute <DORIS Awad - Last Filed: 09/09/21 11:00> Assessment and Plan: Possibly secondary to medication change PT consult placed attempts to call pharmacy for medication verification . Patient orders from a mail pharmacy unable to reach today . <DORIS Awad - Last Filed: 09/09/21 11:00> (3) CKD (chronic kidney disease) stage 3, GFR 30-59 ml/min: Qualifiers: Chronic kidney disease stage 3 subtype: stage 3a (GFR 45-59) Qualified Code(s): N18.31 - Chronic kidney disease, stage 3a <DORIS Awad - Last Filed: 09/09/21 11:00> Code(s): N18.30 - Chronic kidney disease, stage 3 unspecified <DORIS Awad - Last Filed: 09/09/21 11:00> Status: Acute <DORIS Awad - Last Filed: 09/09/21 11:00> Assessment and Plan: BUN/Cr-22/1.45, 25/1.41, 23/1.32 improving improving baseline appears to be in baseline appears to be at 26 /130 avoid Nephrotoxic agent Renal dose medication renal dose medication <Mis VelascoDENA LomasC - Last Filed: 09/09/21 11:00> (4) Congestive heart failure: Code(s): I50.9 - Heart failure, unspecified <Mis VelascoDENA LomasC - Last Filed: 09/09/21 11:00> Status: Chronic <Mis WhaleyDENAC - Last Filed: 09/09/21 11:00> Assessment and Plan: chest x-ray does not indicate pulmonary edema Monitor I&Os and daily weights, reviewed BNP in am <Mis VelascoDORIS Lomas - Last Filed: 09/09/21 11:00> (5) COPD (chronic obstructive pulmonary disease): Code(s): J44.9 - Chronic obstructive pulmonary disease, unspecified <Mis VelascoDENA LomasC - Last Filed: 09/09/21 11:00> Status: Chronic <Mis KristaDORIS Lomas - Last Filed: 09/09/21 11:00> Assessment and Plan: Stable stable Continue inhalers <Mis VelascoDENA LomasC - Last Filed: 09/09/21 11:00> (6) Generalized anxiety disorder: Code(s): F41.1 - Generalized anxiety disorder <Usamaestelle KristaDORIS Lomas - Last Filed: 09/09/21 11:00> Status: Chronic <Usamaestelle KristaDORIS Lomas - Last Filed: 09/09/21 11:00> Assessment and Plan: continue clonazepam <DORIS Awad - Last Filed: 09/09/21 11:00> (7) Nicotine dependence: Code(s): F17.200 - Nicotine dependence, unspecified, uncomplicated <UsamaEMANI Vargas-C - Last Filed: 09/09/21 11:00> Status: Chronic <DORIS Awad - Last Filed: 09/09/21 11:00> Assessment and Plan: Nicotine patch <DORIS Awad - Last Filed: 09/09/21 11:00> (8) Parkinson disease: Code(s): G20 - Parkinson's disease <DORIS Awad - Last Filed: 09/09/21 11:00> Status: Acute <DORIS Awad - Last Filed: 09/09/21 11:00> Assessment and Plan: continue carbo/ levo <DORIS Awad - Last Filed: 09/09/21 11:00> (9) Fibromyalgia: Code(s): M79.7 - Fibromyalgia <DORIS Awad - Last Filed: 09/09/21 11:00> Status: Acute <DORIS Awad - Last Filed:
[2021-09-10] VITALS (12 sets, daily range): BP systolic 126–178; BP diastolic 54–82; PULSE 50–80; RESP 14–20; TEMP 36–36.7; O2SAT 88–98
[2021-09-10 05:23] LABS: Hematocrit 28.3 % (35.0-42.0); Hemoglobin 9.3 g/dL (11.7-13.8); Mean Corpuscular HGB Conc 32.9 g/dL (32.0-36.0); Mean Corpuscular Hemoglobin 33.2 pg (27.0-31.0); Mean Corpuscular Volume 101.1 fL (78.0-102.0); Mean Platelet Volume 10.1 fl (9.2-11.8); Platelet Count Result 127 K/mm3 (150-420); Red Cell Distribution Width 14.9 % (11.6-14.4); White Blood Count 4.8 K/mm3 (4.8-10.8)
[2021-09-10] MEDS: BUDESONIDE RESPULE NEB 0.5 MG/2 ML AMP INHALATION ×2 (05:30→18:06)
[2021-09-10 05:43] LABS: Alanine Aminotransferase 9 U/L (14-59); Albumin Level 3.2 g/dL (3.4-5.0); Alkaline Phosphatase 72 U/L (46-116); Anion Gap 5 mmol/L (8-16); Aspartate Amino Transferase 14 U/L (15-37); Bilirubin,Total 0.4 mg/dL (0.00-1.00); Blood Urea Nitrogen 34 mg/dL (7-18); Calcium 8.4 mg/dL (8.5-10.1); Carbon Dioxide 32 mmol/L (21-32); Chloride 95 mmol/L (98-108); Estimated CRCL calculation 28 ml/min; Estimated Glomerular Filt Rate 31; Glucose 77 mg/dL (70-99); Osmolality Calculated 280 mOsm/kg (285-295); Potassium 3.8 mmol/L (3.5-5.1); Sodium 132 mmol/L (136-145); Total Protein 6.3 g/dL (6.4-8.2)
[2021-09-10] MEDS: HEPARIN SODIUM 5,000 UNITS/ML VIAL 5000 UNITS SUB-Q ×3 (05:53→21:00)
[2021-09-10] MEDS: LEVOTHYROXINE SODIUM 100 MCG TABLET PO (05:54)
[2021-09-10] MEDS: LEVOTHYROXINE SODIUM 75 MCG TABLET PO (05:54)
[2021-09-10] MEDS: ISOSORBIDE MONONITRATE 30 MG TAB.ER.24H 90 MG PO (08:30)
[2021-09-10] MEDS: DULoxetine HCL 30 MG CAPSULE.DR 120 MG PO (08:49)
[2021-09-10] MEDS: RANOLAZINE 500 MG TAB.ER.12H 1000 MG PO ×2 (08:49→20:57)
[2021-09-10] MEDS: clonazePAM (*CRX) 0.5 MG TABLET 0.25 MG PO (08:51)
[2021-09-10] MEDS: lamoTRIgine 100 MG TABLET PO ×2 (08:52→16:39)
[2021-09-10] MEDS: CLOPIDOGREL BISULFATE 75 MG TABLET PO (08:52)
[2021-09-10] MEDS: METOPROLOL SUCCINATE EXT REL 25 MG TABCR PO (08:52)
[2021-09-10] MEDS: POTASSIUM CHLORIDE 20 MEQ TABLET 40 MEQ PO (08:53)
[2021-09-10] MEDS: DOXYCYCLINE HYCLATE 100 MG TABLET PO ×2 (08:53→16:39)
[2021-09-10] MEDS: DICLOFENAC SODIUM 1% 100 GM GEL (*BKC) TOPICAL ×4 (08:54→20:57)
[2021-09-10] MEDS: MICONAZOLE NITRATE 2% CREAM 30 GM TUBE 1 APPLIC TOPICAL ×2 (08:54→16:43)
[2021-09-10] MEDS: GABAPENTIN 300 MG CAPSULE PO ×2 (08:54→16:39)
[2021-09-10] MEDS: FUROSEMIDE 20 MG TABLET BY MOUTH (08:54)
[2021-09-10] MEDS: CARBIDOPA/LEVODOPA 25/100 MG CR TABLET 1 TABLET PO ×2 (09:06→20:56)
--- NOTE | 2021-09-10 09:36 | P.DS_ITS ---
DS: Admitting Diagnosis Discharge Date 09/10/2021 Admitting Diagnosis s/p fall, hypertension, acute on chronic kidney injury, congestive heart failure DS: Discharge Diagnosis Discharge Diagnosis (1) Hypertensive urgency: Code(s): I16.0 - Hypertensive urgency Status: Acute Assessment and Plan: * Patient's blood pressure elevated in the ED patient received 0.1 mg of clonidine and 10 mg labetalol * remain elevated at 178/63 * Continue isosorbide increased from 60 mg >90 mg , metoprolol decrease to 50>25 due to bradycardia and hydralazine with parameters * Will need to follow-up with her primary care physician * Heart rate above 60 (2) Recurrent falls: Code(s): R29.6 - Repeated falls Status: Acute Assessment and Plan: * Possibly secondary to medication change * PT consult placed, patient to go home without 24-hour care, patient will discharge to SNF * attempts to call pharmacy for medication verification . Patient orders from a mail pharmacy unable to reach today . (3) CKD (chronic kidney disease) stage 3, GFR 30-59 ml/min: Qualifiers: Chronic kidney disease stage 3 subtype: stage 3a (GFR 45-59) Qualified Code(s): N18.31 - Chronic kidney disease, stage 3a Code(s): N18.30 - Chronic kidney disease, stage 3 unspecified Status: Acute Assessment and Plan: * BUN/Cr-22/1.45, 25/1.41, 23/1.32, 34/1.62 improving improving baseline appears to be in baseline appears to be at 26 /130 * avoid Nephrotoxic agent * Renal dose medication renal dose medication (4) Congestive heart failure: Code(s): I50.9 - Heart failure, unspecified Status: Chronic Assessment and Plan: * chest x-ray does not indicate pulmonary edema * Monitor I&Os and daily weights, reviewed * BNP in am (5) COPD (chronic obstructive pulmonary disease): Code(s): J44.9 - Chronic obstructive pulmonary disease, unspecified Status: Chronic Assessment and Plan: * Stable stable * Continue inhalers (6) Generalized anxiety disorder: Code(s): F41.1 - Generalized anxiety disorder Status: Chronic Assessment and Plan: * continue clonazepam (7) Nicotine dependence: Code(s): F17.200 - Nicotine dependence, unspecified, uncomplicated Status: Chronic Assessment and Plan: * Nicotine patch (8) Parkinson disease: Code(s): G20 - Parkinson's disease Status: Acute Assessment and Plan: * continue carbo/ levo (9) Fibromyalgia: Code(s): M79.7 - Fibromyalgia Status: Acute Assessment and Plan: * continue pain medication (10) Bipolar disorder: Code(s): F31.9 - Bipolar disorder, unspecified Status: Acute Assessment and Plan: * continue lamotrigine and duloxetine (11) Sleep apnea: Code(s): G47.30 - Sleep apnea, unspecified Status: Acute (12) HTN (hypertension): Code(s): I10 - Essential (primary) hypertension Status: Acute Assessment and Plan: * Patient's blood pressure elevated in the ED patient received 0.1 mg of c lonidine and 10 mg labetalol * Continue isosorbide, metoprolol metoprolol and hydralazine with parameters * vital signs is ordered * will adjust medication as needed DS: Summary Hospital Course Hospital Course: this is a 71-year-old female presented to our emergency department status post fall. Patient has a past medical history of bipolar,. congestive heart failure, pancreatitis, COPD,, conjunctivitis, fibromyalgia,
--- NOTE | 2021-09-10 09:36 | PM.DS ---
DS: Admitting Diagnosis Discharge Date 09/10/2021 Admitting Diagnosis s/p fall, hypertension, acute on chronic kidney injury, congestive heart failure DS: Discharge Diagnosis Discharge Diagnosis (1) Hypertensive urgency: Code(s): I16.0 - Hypertensive urgency Status: Acute Assessment and Plan: Patient's blood pressure elevated in the ED patient received 0.1 mg of clonidine and 10 mg labetalol remain elevated at 178/63 Continue isosorbide increased from 60 mg >90 mg , metoprolol decrease to 50>25 due to bradycardia and hydralazine with parameters Will need to follow-up with her primary care physician Heart rate above 60 (2) Recurrent falls: Code(s): R29.6 - Repeated falls Status: Acute Assessment and Plan: Possibly secondary to medication change PT consult placed, patient to go home without 24-hour care, patient will discharge to SNF attempts to call pharmacy for medication verification . Patient orders from a mail pharmacy unable to reach today . (3) CKD (chronic kidney disease) stage 3, GFR 30-59 ml/min: Qualifiers: Chronic kidney disease stage 3 subtype: stage 3a (GFR 45-59) Qualified Code(s): N18.31 - Chronic kidney disease, stage 3a Code(s): N18.30 - Chronic kidney disease, stage 3 unspecified Status: Acute Assessment and Plan: BUN/Cr-22/1.45, 25/1.41, 23/1.32, 34/1.62 improving improving baseline appears to be in baseline appears to be at 26 /130 avoid Nephrotoxic agent Renal dose medication renal dose medication (4) Congestive heart failure: Code(s): I50.9 - Heart failure, unspecified Status: Chronic Assessment and Plan: chest x-ray does not indicate pulmonary edema Monitor I&Os and daily weights, reviewed BNP in am (5) COPD (chronic obstructive pulmonary disease): Code(s): J44.9 - Chronic obstructive pulmonary disease, unspecified Status: Chronic Assessment and Plan: Stable stable Continue inhalers (6) Generalized anxiety disorder: Code(s): F41.1 - Generalized anxiety disorder Status: Chronic Assessment and Plan: continue clonazepam (7) Nicotine dependence: Code(s): F17.200 - Nicotine dependence, unspecified, uncomplicated Status: Chronic Assessment and Plan: Nicotine patch (8) Parkinson disease: Code(s): G20 - Parkinson's disease Status: Acute Assessment and Plan: continue carbo/ levo (9) Fibromyalgia: Code(s): M79.7 - Fibromyalgia Status: Acute Assessment and Plan: continue pain medication (10) Bipolar disorder: Code(s): F31.9 - Bipolar disorder, unspecified Status: Acute Assessment and Plan: continue lamotrigine and duloxetine (11) Sleep apnea: Code(s): G47.30 - Sleep apnea, unspecified Status: Acute (12) HTN (hypertension): Code(s): I10 - Essential (primary) hypertension Status: Acute Assessment and Plan: Patient's blood pressure elevated in the ED patient received 0.1 mg of clonidine and 10 mg labetalol Continue isosorbide, metoprolol metoprolol and hydralazine with parameters vital signs is ordered will adjust medication as needed DS: Summary Hospital Course Hospital Course: this is a 71-year-old female presented to our emergency department status post fall. Patient has a past medical history of bipolar,. congestive heart failure, pancreatitis, COPD,, conjunctivitis, fibromyalgia, generalized anxiety disorder, history of DVT, history of [place], hypertension, nicotine dependence, Parkinson', shortness of breath, sleep apnea, and right upper quadrant abdominal pains disease, . Patient notes that 3 days prior to her admission her psychiatric medication has been changed. Patient noted that she started to experience dizziness and multiple falls after the medication. It was determined by PT that it was unsafe for patient to go home.
[2021-09-10 10:53] LABS: NT Pro B Type Natriuretic Pept 1196 pg/mL (0-125)
--- NOTE | 2021-09-10 13:39 | PC.NURSE ---
2 sets of house keys given to sister Tereza
[2021-09-11 04:00] VITALS: BP 142/54; PULSE 56; RESP 16; TEMP 36.7; O2SAT 92
[2021-09-11] MEDS: LEVOTHYROXINE SODIUM 100 MCG TABLET PO (05:47)
[2021-09-11] MEDS: LEVOTHYROXINE SODIUM 75 MCG TABLET PO (05:47)
[2021-09-11] MEDS: HEPARIN SODIUM 5,000 UNITS/ML VIAL 5000 UNITS SUB-Q (05:47)
[2021-09-11] MEDS: BUDESONIDE RESPULE NEB 0.5 MG/2 ML AMP INHALATION (05:48)
[2021-09-11 05:49] VITALS: PULSE 62; RESP 20; O2SAT 98
[2021-09-11 05:53] VITALS: PULSE 62; RESP 16; O2SAT 99
[2021-09-11 08:00] VITALS: BP 136/74; PULSE 58; RESP 20; TEMP 36.6; O2SAT 93
--- NOTE | 2021-09-11 08:01 | P.DS_ITS ---
DS: Admitting Diagnosis Discharge Date 09/11/2021 Admitting Diagnosis Multiple falls, weakness DS: Discharge Diagnosis Discharge Diagnosis (1) Hypertensive urgency: Code(s): I16.0 - Hypertensive urgency Status: Acute Assessment and Plan: * Patient's blood pressure elevated in the ED patient received 0.1 mg of clonidine and 10 mg labetalol * remain elevated at 142/54 * Continue isosorbide increased from 60 mg >90 mg , metoprolol decrease to 50>25 due to bradycardia and hydralazine with parameters * Will need to follow-up with her primary care physician * Heart rate above 60 (2) Recurrent falls: Code(s): R29.6 - Repeated falls Status: Acute Assessment and Plan: * Possibly secondary to medication change * PT consult placed, patient to go home without 24-hour care, patient will discharge to SNF * attempts to call pharmacy for medication verification . Patient orders from a mail pharmacy unable to reach today . (3) CKD (chronic kidney disease) stage 3, GFR 30-59 ml/min: Qualifiers: Chronic kidney disease stage 3 subtype: stage 3a (GFR 45-59) Qualified Code(s): N18.31 - Chronic kidney disease, stage 3a Code(s): N18.30 - Chronic kidney disease, stage 3 unspecified Status: Acute Assessment and Plan: * BUN/Cr-22/1.45, 25/1.41, 23/1.32, 34/1.62 improving improving baseline appears to be in baseline appears to be at 26 /130 * avoid Nephrotoxic agent * Renal dose medication renal dose medication (4) Congestive heart failure: Code(s): I50.9 - Heart failure, unspecified Status: Chronic Assessment and Plan: * chest x-ray does not indicate pulmonary edema * Monitor I&Os and daily weights, reviewed * BNP in am (5) COPD (chronic obstructive pulmonary disease): Code(s): J44.9 - Chronic obstructive pulmonary disease, unspecified Status: Chronic Assessment and Plan: * Stable stable * Continue inhalers (6) Generalized anxiety disorder: Code(s): F41.1 - Generalized anxiety disorder Status: Chronic Assessment and Plan: * continue clonazepam (7) Nicotine dependence: Code(s): F17.200 - Nicotine dependence, unspecified, uncomplicated Status: Chronic Assessment and Plan: * Nicotine patch (8) Parkinson disease: Code(s): G20 - Parkinson's disease Status: Acute Assessment and Plan: * continue carbo/ levo (9) Fibromyalgia: Code(s): M79.7 - Fibromyalgia Status: Acute Assessment and Plan: * continue pain medication (10) Bipolar disorder: Code(s): F31.9 - Bipolar disorder, unspecified Status: Acute Assessment and Plan: * continue lamotrigine and duloxetine (11) Sleep apnea: Code(s): G47.30 - Sleep apnea, unspecified Status: Acute (12) HTN (hypertension): Code(s): I10 - Essential (primary) hypertension Status: Acute Assessment and Plan: * Patient's blood pressure elevated in the ED patient received 0.1 mg of clonidine and 10 mg labetalol * Continue isosorbide, metoprolol metoprolol and hydralazine with parameters * vital signs is ordered * will adjust medication as needed DS: Summary Hospital Course Reason for hospitalization: Multiple falls, weakness Hospital Course: this is a 71-year-old female presented to our emergency department status post fall. Patient has a past medical history of bipolar,. congestive heart failure, pancreatitis, COPD,, conjunctivitis, fibromyalgia,
--- NOTE | 2021-09-11 08:01 | PM.DS ---
DS: Admitting Diagnosis Discharge Date 09/11/2021 Admitting Diagnosis Multiple falls, weakness DS: Discharge Diagnosis Discharge Diagnosis (1) Hypertensive urgency: Code(s): I16.0 - Hypertensive urgency Status: Acute Assessment and Plan: Patient's blood pressure elevated in the ED patient received 0.1 mg of clonidine and 10 mg labetalol remain elevated at 142/54 Continue isosorbide increased from 60 mg >90 mg , metoprolol decrease to 50>25 due to bradycardia and hydralazine with parameters Will need to follow-up with her primary care physician Heart rate above 60 (2) Recurrent falls: Code(s): R29.6 - Repeated falls Status: Acute Assessment and Plan: Possibly secondary to medication change PT consult placed, patient to go home without 24-hour care, patient will discharge to SNF attempts to call pharmacy for medication verification . Patient orders from a mail pharmacy unable to reach today . (3) CKD (chronic kidney disease) stage 3, GFR 30-59 ml/min: Qualifiers: Chronic kidney disease stage 3 subtype: stage 3a (GFR 45-59) Qualified Code(s): N18.31 - Chronic kidney disease, stage 3a Code(s): N18.30 - Chronic kidney disease, stage 3 unspecified Status: Acute Assessment and Plan: BUN/Cr-22/1.45, 25/1.41, 23/1.32, 34/1.62 improving improving baseline appears to be in baseline appears to be at 26 /130 avoid Nephrotoxic agent Renal dose medication renal dose medication (4) Congestive heart failure: Code(s): I50.9 - Heart failure, unspecified Status: Chronic Assessment and Plan: chest x-ray does not indicate pulmonary edema Monitor I&Os and daily weights, reviewed BNP in am (5) COPD (chronic obstructive pulmonary disease): Code(s): J44.9 - Chronic obstructive pulmonary disease, unspecified Status: Chronic Assessment and Plan: Stable stable Continue inhalers (6) Generalized anxiety disorder: Code(s): F41.1 - Generalized anxiety disorder Status: Chronic Assessment and Plan: continue clonazepam (7) Nicotine dependence: Code(s): F17.200 - Nicotine dependence, unspecified, uncomplicated Status: Chronic Assessment and Plan: Nicotine patch (8) Parkinson disease: Code(s): G20 - Parkinson's disease Status: Acute Assessment and Plan: continue carbo/ levo (9) Fibromyalgia: Code(s): M79.7 - Fibromyalgia Status: Acute Assessment and Plan: continue pain medication (10) Bipolar disorder: Code(s): F31.9 - Bipolar disorder, unspecified Status: Acute Assessment and Plan: continue lamotrigine and duloxetine (11) Sleep apnea: Code(s): G47.30 - Sleep apnea, unspecified Status: Acute (12) HTN (hypertension): Code(s): I10 - Essential (primary) hypertension Status: Acute Assessment and Plan: Patient's blood pressure elevated in the ED patient received 0.1 mg of clonidine and 10 mg labetalol Continue isosorbide, metoprolol metoprolol and hydralazine with parameters vital signs is ordered will adjust medication as needed DS: Summary Hospital Course Reason for hospitalization: Multiple falls, weakness Hospital Course: this is a 71-year-old female presented to our emergency department status post fall. Patient has a past medical history of bipolar,. congestive heart failure, pancreatitis, COPD,, conjunctivitis, fibromyalgia, generalized anxiety disorder, history of DVT, history of [place], hypertension, nicotine dependence, Parkinson', shortness of breath, sleep apnea, and right upper quadrant abdominal pains disease, . Patient notes that 3 days prior to her admission her psychiatric medication has been changed. Patient noted that she started to experience dizziness and multiple falls after the medication. It was determined by PT that it was unsafe for patient to go home. Martha
[2021-09-11] MEDS: clonazePAM (*CRX) 0.5 MG TABLET 0.25 MG PO (09:48)
[2021-09-11] MEDS: DICLOFENAC SODIUM 1% 100 GM GEL (*BKC) TOPICAL (09:48)
[2021-09-11] MEDS: DOXYCYCLINE HYCLATE 100 MG TABLET PO (09:50)
[2021-09-11] MEDS: ISOSORBIDE MONONITRATE 30 MG TAB.ER.24H 90 MG PO (09:50)
[2021-09-11 09:51] VITALS: PULSE 54
[2021-09-11] MEDS: METOPROLOL SUCCINATE EXT REL 25 MG TABCR PO (09:51)
[2021-09-11] MEDS: POTASSIUM CHLORIDE 20 MEQ TABLET 40 MEQ PO (09:51)
[2021-09-11] MEDS: FUROSEMIDE 20 MG TABLET BY MOUTH (09:51)
[2021-09-11] MEDS: GABAPENTIN 300 MG CAPSULE PO (09:51)
[2021-09-11] MEDS: CLOPIDOGREL BISULFATE 75 MG TABLET PO (09:51)
[2021-09-11] MEDS: lamoTRIgine 100 MG TABLET PO (09:52)
[2021-09-11] MEDS: NICOTINE (*PBKC) 21 MG PATCH 1 PATCH TRANSDERM (09:52)
[2021-09-11] MEDS: CARBIDOPA/LEVODOPA 25/100 MG CR TABLET 1 TABLET PO (09:52)
[2021-09-11] MEDS: DULoxetine HCL 30 MG CAPSULE.DR 120 MG PO (09:52)
[2021-09-11] MEDS: MICONAZOLE NITRATE 2% CREAM 30 GM TUBE 1 APPLIC TOPICAL (09:53)
--- NOTE | 2021-09-11 13:22 | PC.NURSE ---
1030 report called to [facility] and given to farhan. sister notified that they would like her around 1pm. 1300 sister here. patient loaded in her car and paperwork sent. verified she was taking her [facility].
--- NOTE | 2021-09-12 10:02 | PC.NURSE ---
jail states they received and understood the discharge instructions.
== END 2021-09-11 13:00 | DRG 305 ==
LOC: CHSED 19:35 → CHS2ND 19:37
PROVIDERS: Nurse Practitioner; Admitting Provider Internal Medicine Critical Care Medicine; Emergency Provider Internal Medicine Critical Care Medicine; PCP Physician Assistant; Visit Provider Internal Medicine Critical Care Medicine
DX: I16.0 Hypertensive urgency (principal); I11.0 Hypertensive heart disease with heart failure; I13.0 Hypertensive heart and chronic kidney disease with heart failure and stage 1 through stage 4 chronic kidney disease, or unspecified chronic kidney disease; N18.31 Chronic kidney disease, stage 3a; I50.9 Heart failure, unspecified; J44.9 Chronic obstructive pulmonary disease, unspecified; G20 Parkinson's disease; M79.7 Fibromyalgia; I25.2 Old myocardial infarction; R29.6 Repeated falls; G47.30 Sleep apnea, unspecified; F31.9 Bipolar disorder, unspecified; F41.1 Generalized anxiety disorder
CPT/HCPCS: 36415; 71045; 72170; 80048; 80053; 83880; 84484; 85025; 85027; 85055; 93005; 94640; 96372; 96374; 97161; 97165; 97530; 97535; 99285; A9270; G0378; J1644

== ENCOUNTER 2021-12-14 14:14 | Inpatient (IN) | payer MEDICARE, MEDICAID, SELFPAY ==
[2021-12-14] VITALS (11 sets, daily range): BP systolic 153–197; BP diastolic 57–99; PULSE 62–68; RESP 16–20; TEMP 36.1–37.2; O2SAT 94–100; BMI 30.1
--- NOTE | ~2021-12-14 | NM_ITS ---
EXAMINATION: NM shital stress w perfusion DATE: 12/17/2021 09:47 INDICATION: Chest pain TECHNIQUE: Rest images were obtained following intravenous administration of 10.2 mCi Tc99m tetrofosm in (Myoview). The patient was infused intravenously with Lexiscan (Regadenoson). Then, 32.5 mCi Tc99m tetrofosmin (Myoview) was administered intravenously, and stress images were obtained. Data was nadir nstructed into short axis and horizontal and vertical long axis SPECT images. Gated SPECT images were also obtained. COMPARISON: None. FINDINGS: There is no definite reversible or fixed perfusion abnormality to suggest ischemia or infar ction. There is normal left ventricular chamber size, wall motion and ejection fraction. Left ventr icular ejection fraction measures >70%. IMPRESSION: 1. Normal myocardial perfusion at rest and during stress. 2. Left ventricular ejection fraction measuring >70%. Reviewed, dictated and finalized at location A.
--- NOTE | ~2021-12-14 | XR_ITS ---
EXAMINATION: XR chest 1V portable DATE: 12/14/2021 14:19 INDICATION: Chest pain. TECHNIQUE: A single frontal view of the chest was obtained. COMPARISON: Chest single view 08/30/2021, chest CT 03/09/2021 FINDINGS: The lung volumes are normal. There is a chronic diffuse interstitial pattern in the lungs, consistent with emphysema. No pleural effusion or pneumothorax. The heart size is normal. There are s urgical clips in right neck. IMPRESSION: 1. Emphysema. Reviewed, dictated and finalized at location A. IMPRESSION: 1. Emphysema.
--- NOTE | 2021-12-14 13:55 | ECG_ITS ---
Measurements Intervals [place] Rate: 67 P: 18 SC: 109 QRS: 18 QRSD: 89 T: 64 QT: 428 QTc: 452 Interpretive Statements SINUS RHYTHM WITH SHORT SC INTERVAL BASELINE ARTIFACT- I, III, V5 BORDERLINE ECG Electronically Signed On 12-14-2021 14:00:02 CDT by Taiwo Delarosa D.O.
--- NOTE | 2021-12-14 13:55 | ED.CHESTPAIN ---
HPI - Chest Pain General Chief Complaint: Chest Pain Stated Complaint: chest pain Source: RN notes reviewed History of Present Illness HPI narrative: Patient presents emergency department from home via EMS for chest pain. Patient states has been having intermittent left-sided chest pain since last night the pain is located left side of the chest described as a pressure and radiates into her left arm patient states that she has no associated shortness of breath with this she denies any fevers or chills nausea or vomiting. States she does have history of previous cardiac stents and is followed by cardiology at [facility] she is on aspirin Plavix and Coumadin. Patient with possible elevation in anterior leads and code STEMI was called by EMS prior to arrival Related Data Home Medications Medication Instructions Recorded Confirmed acetaminophen 650 mg 650 mg PO Q8H 07/01/19 09/07/21 tablet,extended release clopidogrel 75 mg tablet 75 mg PO DAILY 07/01/19 09/07/21 ranolazine 1,000 mg 1,000 mg PO BID tablet 07/01/19 09/07/21 tablet,extended release,12 hr duloxetine 60 mg capsule,delayed 120 mg PO BID cap 05/02/20 09/07/21 release lamotrigine 100 mg tablet 100 mg PO BID 05/02/20 09/07/21 levothyroxine 175 mcg PO DAILY 09/06/21 09/07/21 Allergies Allergy/AdvReac Type Severity Reaction Status Date / Time desipramine Allergy Severe Throat Verified 09/07/21 17:32 swelling amlodipine Allergy Intermediate Unknown Verified 09/07/21 17:32 bupropion Allergy Intermediate Hives / Verified 09/07/21 17:32 Red Face Penicillins Allergy Intermediate Unknown Verified 09/07/21 17:32 Oizolvu-PRH-DzF Reductase Allergy Intermediate muscle Verified 09/07/21 17:32 Inhibitor pain [Ofhhamt-Crs-Phv Reductase Inhibitor] atorvastatin AdvReac leg cramps Verified 09/07/21 17:32 Contrast Media Allergy Severe Anaphylactic Uncoded 09/06/21 10:39 Shock IV dye Allergy Intermediate Unknown Uncoded 09/06/21 10:39 Sulfonamides Allergy Intermediate Unknown Uncoded 09/06/21 10:39 Review of Systems Review of Systems: Gen.: Denies fevers or chills ENT: Denies congestion Respiratory: Denies shortness of breath or cough CV: See HPI GI: Denies abdominal pain nausea, emesis or diarrhea Musculoskeletal: Denies back pain or muscle pain Neuro: Denies numbness, tingling, weakness or focal weakness Skin: Denies rash Except as documented, all other systems reviewed and negative [facility] Past Medical History Medical History (Updated 12/14/21 @ 16:32 by Logan Shea DO) Bipolar disorder Congestive heart failure Conjunctivitis COPD (chronic obstructive pulmonary disease) COPD with acute exacerbation Fibromyalgia Generalized anxiety disorder Hand joint pain History of DVT (deep vein thrombosis) History of IN (myocardial infarction) 3-4 Stents HTN (hypertension) Maxillary sinusitis, acute Myocardial infarct, old Nicotine dependence Overweight Parkinson disease RUQ abdominal pain Shortness of breath Sleep apnea Surgical History Surgical History History of adenoidectomy History of intravascular stent placement 3-[address], per patient History of tonsillectomy Hx of hysterectomy Hx of tubal ligation Family History Family History Mother Depression Kidney disease Carcinoma of colon Heart disease Diabetes mellitus Father Alcoholism Social History Social History Social History: , patient enjoys singing Smoking packs per day: 1 Smoking cigarettes per day: 20.0 Years smoked: 47 Smoking pack-years: 47.00 Smoking status: Current every day smoker Tobacco type: cigarettes Second hand tobacco smoke exposure: No Alcohol intake: never Alcohol use details: very infrequently Substance use: never Sub
[2021-12-14 14:29] LABS: Basophils Absolute Auto 0.1 K/mm3 (0.0-0.1); Basophils Percent Auto 1.1 % (0.2-1.2); Eosinophils Absolute Auto 0.6 K/mm3 (0-0.3); Eosinophils Percent Auto 11.6 % (0-4.4); Hematocrit 29.6 % (37.0-47.0); Hemoglobin 9.1 g/dL (12.0-15.0); Immature Granulocyte Absolute 0.03 K/mm3 (0.00-0.031); Immature Granulocyte Percent A 0.6 % (0-0.5); Lymphocytes Absolute Auto 1.41 K/mm3 (0.9-3.2); Lymphocytes Percent Auto 25.9 % (18.3-44.2); Mean Corpuscular HGB Conc 30.7 g/dl (32-36); Mean Corpuscular Hemoglobin 32.5 pg (26-34); Mean Corpuscular Volume 105.7 fl (80-100); Mean Platelet Volume 8.9 fl (7.4-10.4); Monocytes Percent Auto 17.8 % (2.6-8.5); Neutrophils Absolute Auto 2.4 K/mm3 (1.3-6.7); Platelet Count Result 208 k/mm3 (150-375); Red Cell Distribution Width 13.8 % (11.5-14.5); White Blood Count 5.5 K/mm3 (4.5-10.0)
[2021-12-14 14:38] LABS: Albumin Level 3.8 g/dL (3.5-5.1); Alkaline Phosphatase 85 U/L (38-126); Anion Gap 5 mmol/L (8-16); Aspartate Amino Transferase 25 U/L (14-36); Bilirubin,Total 0.5 mg/dL (0.2-1.3); Blood Urea Nitrogen 37 mg/dL (7-17); Calcium 9.1 mg/dL (8.4-10.2); Carbon Dioxide 32 mmol/L (22-30); Chloride 100 mmol/L (98-107); Estimated CRCL calculation 32 ml/min; Estimated Glomerular Filt Rate 37; Glucose 105 mg/dL (65-110); Lipase 22 U/L (23-300); Potassium 4.5 mmol/L (3.4-5.0); Sodium 137 mmol/L (137-145)
[2021-12-14 14:40] LABS: INR 1.1; Prothrombin Time 13.6 Seconds (11.1-14.7)
[2021-12-14 14:41] LABS: Partial Thromboplastin Time 31.1 SECONDS (22.3-36.8)
[2021-12-14 14:49] LABS: Troponin I < 0.012 ng/mL (0.000-0.034)
[2021-12-14 15:23] LABS: Alanine Aminotransferase < 4 U/L (4-35)
--- NOTE | 2021-12-14 17:30 | PM.IMHP ---
H&P: HPI History of Present Illness Date/Time: 12/14/21 17:30 Chief Complaint: Chest pain. Narrative: This is a pleasant 71-year-old female smoker with coronary artery disease, COPD, hypertension, Parkinson's disease, chronic kidney disease, and sleep apnea who presented to the emergency department via EMS from [facility] for evaluation of chest pain. 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 She did not mention to him however that she has been under a lot of stress within the past 3 or 4 months and that she has been having intermittent left anterior chest pain. The pain has been lasting longer and has been more intense since last night and she describes a pressure and at times burning sensation in the left anterior chest radiating down the left arm associated with shortness of breath and nausea. She use to carry a necklace that contained nitroglycerin however her sister apparently got rid of that and most of her other possessions when the patient was moved to [facility]. She did not say anything to staff last evening but did report chest pain today and they called 911. She received aspirin and nitroglycerin which did improve her pain. EMS called a STEMI in the field with concerns for ST elevation in the anterior leads however that was not appreciated on EKG done on arrival to the ER. Thus far she has had 2 negative troponins. Given her cardiac history, she is being admitted for further observation. At this time she has minimal discomfort and she denies aggravating and alleviating factors. She also denies dizziness, syncope, presyncope, shortness of breath, nausea, vomiting, and sweats. No epigastric or abdominal pain, bloating, hematochezia, or melena. Review of Systems Review of Systems: Twelve systems were reviewed. She admits to being depressed recently as she had to move into the [facility]. She goes on to say that her sister sold almost all of her possessions and she is afraid she will never be able to go back to her apartment. She lost her only son approximately 3 years ago and she has been for 6 years and feels like she really does not have much support aside from 1 of her half-sisters. She denies harmful thoughts. She does endorse losing about 145 lb since losing her son and . She has not had any recent cold or flu symptoms though last week she had some pain in the right side of her ear when her beautician put a piece of cotton in there to prevent hair dye and water from going into the ear canal. When the cotton ball was removed, she noted that there was blood on their in her ear has been a bit sore since that time. She denies headache and neck ache. No recent falls. She denies dysphagia and concerns for aspiration. She does not sleep very well and frequently wakes herself up snoring or gasping for air. She was reportedly diagnosed with sleep apnea several years ago however her insurance refused to pay for the CPAP. No diarrhea or dysuria. Except as documented, all other systems were reviewed and are negative. [facility] Past Medical History Medical History (Updated 12/14/21 @ 22:14 by Dianne Banda PA-C) Bipolar disorder Chronic kidney disease, stage 3 Chronic obstructive pulmonary disease Congestive heart failure Coronary artery disease History of CA and several stents. Deep venous thrombosis Fibromyalgia Generalized anxiety disorder Hypertension Hypothyroidism Nicotine dependence Obstructive sleep apnea Parkinson disease Surgical History Surgical History (Updated 12/14/21 @ 17:34 by Dianne Banda PA-C) History of adenoidectomy History of cardiac catheterization History of coronary artery stent placement History of hysterectomy History of tonsillectomy History of tubal ligation Family History Family History Mother Depression Kidney disease
--- NOTE | 2021-12-14 18:05 | ADMGEN ---
This patient, Eunice Simpson, was admitted to IMU Room 212-01. Patient/family oriented to hospital policies and general routines including ID bracelet, bed and alarms, visiting hours, pain management, procedures, bathroom and other care routines, personal items, smoking policy, room service/diet, and visiting hours. Information on how to activate the Rapid Response Team has been discussed. Patient/Family are encouraged to report perceived risks to care and to ask questions if they do not understand what they are told or what they should do.
[2021-12-14] MEDS: CARBAMIDE PEROXIDE 6.5% OT SOLN 15 ML BTL 5 DROP EACH EAR (21:10)
[2021-12-14 21:14] LABS: Troponin I < 0.012 ng/mL (0.000-0.034)
[2021-12-14 23:32] LABS: Troponin I < 0.012 ng/mL (0.000-0.034)
[2021-12-15] VITALS (23 sets, daily range): BP systolic 87–207; BP diastolic 43–72; PULSE 55–88; RESP 16–24; TEMP 35.7–36.6; O2SAT 92–100
[2021-12-15] MEDS: CARBIDOPA/LEVODOPA 12.5/50 MG TABLET 1 TABLET PO ×4 (00:41→17:00)
[2021-12-15 05:26] LABS: Basophils Absolute Auto 0.1 K/mm3 (0.0-0.1); Basophils Percent Auto 1.1 % (0.2-1.2); Eosinophils Absolute Auto 0.7 K/mm3 (0-0.3); Eosinophils Percent Auto 13.9 % (0-4.4); Hematocrit 30.8 % (37.0-47.0); Hemoglobin 9.4 g/dL (12.0-15.0); Immature Granulocyte Absolute 0.02 K/mm3 (0.00-0.031); Immature Granulocyte Percent A 0.4 % (0-0.5); Lymphocytes Absolute Auto 1.44 K/mm3 (0.9-3.2); Lymphocytes Percent Auto 27.1 % (18.3-44.2); Mean Corpuscular HGB Conc 30.5 g/dl (32-36); Mean Corpuscular Hemoglobin 32.4 pg (26-34); Mean Corpuscular Volume 106.2 fl (80-100); Mean Platelet Volume 9.1 fl (7.4-10.4); Monocytes Absolute Auto 0.8 K/mm3 (0.1-0.6); Monocytes Percent Auto 15.4 % (2.6-8.5); Neutrophils Absolute Auto 2.2 K/mm3 (1.3-6.7); Neutrophils Percent Auto 42.1 % (45.5-73.1); Platelet Count Result 186 k/mm3 (150-375); Red Cell Distribution Width 13.9 % (11.5-14.5); White Blood Count 5.3 K/mm3 (4.5-10.0)
[2021-12-15 05:54] LABS: Albumin Level 3.7 g/dL (3.5-5.1); Alkaline Phosphatase 80 U/L (38-126); Anion Gap 7 mmol/L (8-16); Aspartate Amino Transferase 17 U/L (14-36); Bilirubin,Total 0.5 mg/dL (0.2-1.3); Blood Urea Nitrogen 36 mg/dL (7-17); Calcium 9.1 mg/dL (8.4-10.2); Carbon Dioxide 29 mmol/L (22-30); Chloride 102 mmol/L (98-107); Estimated CRCL calculation 42 ml/min; Estimated Glomerular Filt Rate 49; Glucose 98 mg/dL (65-110); Magnesium 2.1 mg/dL (1.6-2.3); Potassium 4.6 mmol/L (3.4-5.0); Sodium 138 mmol/L (137-145)
[2021-12-15 06:03] LABS: Iron 54 ug/dL (37-170)
[2021-12-15 06:07] LABS: Percent Iron Saturation 27 % (20-50)
[2021-12-15 06:12] LABS: Alanine Aminotransferase < 4 U/L (4-35)
[2021-12-15] MEDS: LEVOTHYROXINE SODIUM 75 MCG TABLET PO (06:22)
[2021-12-15] MEDS: ACETAMINOPHEN 325 MG TABLET 650 MG PO ×3 (06:23→20:32)
[2021-12-15] MEDS: LEVOTHYROXINE SODIUM 100 MCG TABLET PO (06:23)
[2021-12-15 06:33] LABS: Thyroid Stimulating Hormone Reflex 0.995 uIU/mL (0.465-4.68)
[2021-12-15 06:44] LABS: Folic Acid 11.7 ng/mL (2.76->20)
[2021-12-15] MEDS: RANOLAZINE 500 MG TAB.ER.12H 1000 MG PO ×2 (08:23→20:32)
[2021-12-15] MEDS: lisinopriL 10 MG TABLET PO (08:24)
[2021-12-15] MEDS: LORATADINE 10 MG TABLET PO (08:24)
[2021-12-15] MEDS: METOPROLOL SUCCINATE EXT REL 25 MG TABCR PO (08:24)
[2021-12-15] MEDS: PANTOPRAZOLE 40 MG TABLET PO (08:24)
[2021-12-15] MEDS: MAGNESIUM OXIDE 400 MG TABLET PO (08:24)
[2021-12-15] MEDS: GABAPENTIN 300 MG CAPSULE PO ×2 (08:25→16:59)
[2021-12-15] MEDS: DULoxetine HCL 60 MG CAPSULE.DR 120 MG PO ×2 (08:25→20:32)
[2021-12-15] MEDS: FLUTICASONE PROPIONATE 0.05% NA SPR 16 GM BTL (*BKC) 1 SPRAY NASAL (08:25)
[2021-12-15] MEDS: lamoTRIgine 100 MG TABLET PO ×2 (08:25→16:59)
[2021-12-15] MEDS: FUROSEMIDE 40 MG TABLET PO (08:25)
[2021-12-15] MEDS: CARBAMIDE PEROXIDE 6.5% OT SOLN 15 ML BTL 5 DROP EACH EAR ×2 (08:26→17:00)
[2021-12-15] MEDS: CLOPIDOGREL BISULFATE 75 MG TABLET PO (08:26)
[2021-12-15] MEDS: ASPIRIN 81 MG ENTERIC TABLET PO (08:26)
[2021-12-15] MEDS: clonazePAM (*CRX) 0.25 MG TABLET PO (08:30)
[2021-12-15] MEDS: ALBUTEROL SULFATE NEB 2.5 MG/0.5 ML INH INHALATION ×3 (09:11→20:28)
[2021-12-15] MEDS: BUDESONIDE RESPULE NEB 0.5 MG/2 ML AMP INHALATION ×2 (09:11→20:28)
--- NOTE | 2021-12-15 10:15 | PM.IMPN ---
Progress Note: A&P Assessment and Plan (1) Hypertension: Code(s): I10 - Essential (primary) hypertension Status: Chronic (2) Parkinson disease: Code(s): G20 - Parkinson's disease Status: Acute (3) Chest pain: Code(s): R07.9 - Chest pain, unspecified Status: Acute Additional Plan # hypertensive urgency, chest pain -chest pain resolved with blood pressure control -SBP 150s this morning, will continue to trend daily -continue monitor on telemetry, heart rate 57 this morning -will check orthostatics as patient has Parkinson's disease and we do not want to overcorrect blood pressure -stopping Imdur as patient does not take at home and states that it causes her to have significant dizziness -troponins negative -metoprolol succinate 25 mg daily, lisinopril 10 mg daily # acute on chronic hypoxic respiratory failure # COPD -patient previously was on home oxygen therapy 2 L, currently on 3 L oxygen by nasal cannula -patient does not appear to be in acute exacerbation of COPD, pneumonia, heart failure -she is breathing comfortably on the 3 L, she may need home oxygen therapy prescription -we will optimize her COPD -discussed with nurse to wean oxygen to keep oxygen saturation greater than 89% -checking ApneaLink -continue budesonide and albuterol -she does not appear to be floridly fluid overloaded, chest x-ray shows emphysema # Parkinson's disease -continue home medications: Carbidopa levodopa # other chronic conditions -GERD: Continue Protonix -hypo magnesemia: Continue Mag supplement -seasonal allergies: Continue home Claritin -hypothyroidism: Continue home Synthroid -continue home Lamictal -neuropathy: Continue gabapentin, duloxetine -anxiety/depression: On duloxetine, Klonopin -CAD: Continue aspirin, Plavix, Ranexa, Lasix 40 mg daily (will keep diuretic as is) -vitamin-D deficiency Diet: Heart healthy DVT prophylaxis: SCDs Code status: Full code Disposition: Downgrading to Advantagene today, pending PT OT evaluation, may be discharged 1-2 days Time Spent With Patient Time with patient: 25 - 35 minutes Subjective Date/time seen: 12/15/21 10:15 Patient seen examined. Her chest pain has resolved and her blood pressure is much better this morning systolic blood pressure 150s. Patient has known history of Parkinson's and I discussed with nurse that we will check her orthostatics and make sure we do not drop her blood pressure too much. She states she does not take Imdur because it causes her to be dizzy, will discontinue Imdur in add Imdur on allergy list with side effect dizziness. Patient has known COPD and is on 3 L oxygen currently, we will continue weaning as tolerated. Patient previously was on oxygen 2 L at home which was taken off. She will need to be optimized with COPD treatment with inhaler and may need to return back to her 2 L oxygen. Patient does not appear to be any COPD exacerbation with no wheezing, nor fevers, nor increased work of breathing. Discussed with nurse to wean oxygen as tolerated to keep oxygen saturation greater than 89%. Will downgrade patient to Advantagene. She denies fever, chills, nausea, vomiting, diarrhea, chest pain, shortness breast. Review of Systems Review of Systems: All systems reviewed & are unremarkable except as noted in HPI and below Exam Narrative: - GENERAL: Pleasant older woman in no acute distress breathing comfortably on 3 L oxygen - EYES: EOMI. Anicteric. - HENT: Moist mucous membranes. - LUNGS: Clear to auscultation bilaterally, no wheezing, rhonchi, or rales. On 3 L oxygen by nasal cannula. Nonlabored respirations - CARDIOVASCULAR: Regular rate and rhythm. No murmur. No JVD. - ABDOMEN: Soft, non-tender and non-distended. No palpable masses. - EXTREMITIES: No edema. Peripheral pulses 2+. Non-tender. - NEUROLOGIC: No focal neurological deficits. CN II-XII grossly intact. - PSYCHIATRIC: Awake, Alert and oriented x 3. Appropriate mood an
--- NOTE | 2021-12-15 14:43 | PM.CNCAR ---
Assessment and Plan Additional Plan Assessment Atypical chest pain in patient with Hx of CAD, she had prior PCI in 2009, negative trop and normal EKG, poorly tolerated Isordil, possibly poor compliance HTN Aortic stenosis per clinical examintation Anxiety disorder Plan TTE Increase metoprolol to 50 mg daily Add imdur 15 mg at night since she has dizziness and falls in day time with NTG Cont ASA, Statin and lisinopril 10 mg daily Nuclear stress test in friday History of Present Illness History of Present Illness Consult date/time: 12/15/21 14:43 Consult reason: chest pain Reason For Visit: Chest pain Narrative: 71 Yrs old female with HX of CAD presented with left side chest pain, that radiates to left arm, for last 2 days has been recurrent lasting for minutes, no precipitanting factors and gets better with SL NTG. demetris work up in [place] was negative for cardiac enzymes or EKG changes. Review of Systems Review of Systems: All systems reviewed & are unremarkable except as noted in HPI and below PMFSH Past Medical History Medical History (Updated 12/14/21 @ 22:14 by Dianne Banda PA-C) Bipolar disorder Chronic kidney disease, stage 3 Chronic obstructive pulmonary disease Congestive heart failure Coronary artery disease History of [place] and several stents. Deep venous thrombosis Fibromyalgia Generalized anxiety disorder Hypertension Hypothyroidism Nicotine dependence Obstructive sleep apnea Parkinson disease Surgical History Surgical History (Updated 12/14/21 @ 17:34 by Dianne Banda PA-C) History of adenoidectomy History of cardiac catheterization History of coronary artery stent placement History of hysterectomy History of tonsillectomy History of tubal ligation Family History Family History Mother Depression Kidney disease Carcinoma of colon Heart disease Diabetes mellitus Father Alcoholism Social History Social History (Updated 12/14/21 @ 22:08 by Dianne Banda PA-C) Social History: Surrogate decision maker: Johanny Dionsiio (sister) or Lolly Navas (friend). Code status: Full code. Full code. Smoking packs per day: 3 Smoking cigarettes per day: 60.0 Years smoked: 48 Smoking pack-years: 144.00 Smoking status: Former smoker Tobacco type: cigarettes Second hand tobacco smoke exposure: No Smoking end date: 07/11/21 Additional smoking assessment comments: Smoked up to 3 packs a day. Still occasionally smokes 2 cigarettes a day. Alcohol intake: never Alcohol use details: Infrequent alcohol use. Substance use: never Substance use type: does not use Additional living arrangements comments: . [facility]. 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 Spiritual care concerns: Yes Agree to blood products: Yes Meds Home Medications and Allergies Home Medications Medication Instructions Recorded Confirmed Type acetaminophen 650 mg 650 mg PO Q8H 07/01/19 12/14/21 History tablet,extended release clopidogrel 75 mg tablet 75 mg PO DAILY 07/01/19 12/14/21 History ranolazine 1,000 mg 1,000 mg PO BID tablet 07/01/19 12/14/21 History tablet,extended release,12 hr benzonatate 200 mg capsule 200 mg PO BID PRN #10 cap 09/23/19 12/14/21 Rx budesonide 0.5 mg/2 mL suspension 0.5 mg INHALATION BID #120 ml 09/28/19 12/14/21 Rx for nebulization formoterol fumarate 20 mcg/2 mL 2 ml INHALATION BID #120 ml 09/28/19 12/14/21 Rx solution for nebulization calcium gluconate 60 mg calcium 60 mg PO BID #60 tablet 11/10/19 12/14/21 Rx (650 mg) tablet albuterol sulfate 90 mcg/actuation 1 puff INHALATION Q4H PRN #8.5 gm 01/12/20 12/14/21 Rx aerosol inhaler carbidopa ER 25 mg-levodopa 100 mg 1 tablet PO TID #90 tablet 04/21/20 12/14/21 Rx tablet,extended release duloxetine 60 mg capsule,delayed 120 mg PO BID cap 05/02/20 05
[2021-12-15] MEDS: ISOSORBIDE MONONITRATE 15 MG TAB.ER.24H PO (17:18)
[2021-12-16] VITALS (21 sets, daily range): BP systolic 114–178; BP diastolic 44–62; PULSE 55–95; RESP 15–20; TEMP 36.1–36.7; O2SAT 90–100
[2021-12-16] MEDS: ALBUTEROL SULFATE NEB 2.5 MG/0.5 ML INH INHALATION ×4 (02:15→20:02)
[2021-12-16] MEDS: LEVOTHYROXINE SODIUM 75 MCG TABLET PO (06:31)
[2021-12-16] MEDS: LEVOTHYROXINE SODIUM 100 MCG TABLET PO (06:31)
[2021-12-16] MEDS: ACETAMINOPHEN 325 MG TABLET 650 MG PO ×3 (06:32→20:54)
[2021-12-16 06:38] LABS: Hematocrit 28.3 % (37.0-47.0); Hemoglobin 8.8 g/dL (12.0-15.0); Mean Corpuscular HGB Conc 31.1 g/dl (32-36); Mean Corpuscular Hemoglobin 32.4 pg (26-34); Mean Platelet Volume 9.2 fl (7.4-10.4); Platelet Count Result 183 k/mm3 (150-375); Red Blood Count 2.72 M/mm3 (4.2-5.4); Red Cell Distribution Width 13.8 % (11.5-14.5); White Blood Count 5.3 K/mm3 (4.5-10.0)
[2021-12-16 06:46] LABS: Anion Gap 5 mmol/L (8-16); Blood Urea Nitrogen 39 mg/dL (7-17); Calcium 8.9 mg/dL (8.4-10.2); Carbon Dioxide 32 mmol/L (22-30); Chloride 101 mmol/L (98-107); Estimated CRCL calculation 30 ml/min; Estimated Glomerular Filt Rate 34; Glucose 85 mg/dL (65-110); Magnesium 2.1 mg/dL (1.6-2.3); Potassium 4.6 mmol/L (3.4-5.0); Sodium 138 mmol/L (137-145)
[2021-12-16] MEDS: BUDESONIDE RESPULE NEB 0.5 MG/2 ML AMP INHALATION ×2 (08:27→20:02)
[2021-12-16] MEDS: clonazePAM (*CRX) 0.25 MG TABLET PO (08:46)
[2021-12-16] MEDS: RANOLAZINE 500 MG TAB.ER.12H 1000 MG PO ×2 (08:47→20:54)
[2021-12-16] MEDS: MAGNESIUM OXIDE 400 MG TABLET PO (08:47)
[2021-12-16] MEDS: lamoTRIgine 100 MG TABLET PO ×2 (08:47→16:58)
[2021-12-16] MEDS: METOPROLOL SUCCINATE EXT REL 50 MG TABCR PO (08:47)
[2021-12-16] MEDS: LORATADINE 10 MG TABLET PO (08:47)
[2021-12-16] MEDS: PANTOPRAZOLE 40 MG TABLET PO (08:47)
[2021-12-16] MEDS: lisinopriL 10 MG TABLET PO (08:47)
[2021-12-16] MEDS: CARBAMIDE PEROXIDE 6.5% OT SOLN 15 ML BTL 5 DROP EACH EAR ×2 (08:48→16:58)
[2021-12-16] MEDS: DULoxetine HCL 60 MG CAPSULE.DR 120 MG PO ×2 (08:48→20:54)
[2021-12-16] MEDS: ASPIRIN 81 MG ENTERIC TABLET PO (08:48)
[2021-12-16] MEDS: FUROSEMIDE 40 MG TABLET PO (08:48)
[2021-12-16] MEDS: CLOPIDOGREL BISULFATE 75 MG TABLET PO (08:48)
[2021-12-16] MEDS: GABAPENTIN 300 MG CAPSULE PO ×2 (08:48→16:59)
[2021-12-16] MEDS: CARBIDOPA/LEVODOPA 12.5/50 MG TABLET 1 TABLET PO ×3 (08:48→16:59)
[2021-12-16] MEDS: FLUTICASONE PROPIONATE 0.05% NA SPR 16 GM BTL (*BKC) 1 SPRAY NASAL (08:48)
--- NOTE | 2021-12-16 11:04 | PC.NURSE ---
This patient, Eunice Simpson, was transferred to [facility] on 12/16/21 at 1052. Personal belongings sent with patient. Report given to Delisa at 1043. Appropriate documentation sent with patient.
--- NOTE | 2021-12-16 11:10 | PC.NURSE ---
This patient, Eunice Simpson, was received from [ [id number]] on 12/16/21 at 1105. Patient/family oriented to unit policies and routines
--- NOTE | 2021-12-16 11:30 | PM.PNCARD ---
Progress Note: A&P Additional Plan Assessment Atypical chest pain in patient with Hx of CAD, she had prior PCI in 2009, negative trop and normal EKG, poorly tolerated Isordil, possibly poor compliance HTN Aortic stenosis per clinical examintation Anxiety disorder Plan TTE Metoprolol to 50 mg daily Increase Imdur to 30 mg at night since she has dizziness and falls in day time with NTG Cont ASA, Statin and lisinopril 10 mg daily Nuclear stress test in friday Subjective Date/time seen: 12/16/21 11:30 Interval history: no acute events Tele: SR in 60s Review of Systems Review of Systems: All systems reviewed & are unremarkable except as noted in HPI and below Exam Const: General: comfortable and no acute distress Other: Able to lie flat HENMT: General nose exam: Normal nares present and no epistaxis Mouth: Yes moist mucous membranes Eyes: Sclera: sclerae normal Pupils: Equal, round and reactive pupils present Neck: Neck: supple and no JVD Carotids: no bruits Resp: Auscultation: clear to auscultation bilaterally and lung sounds not diminished Other: No chest wall tenderness Cardio: Rate: regular rate Rhythm: regular rhythm Heart sounds: no gallops, no murmurs and no rubs GI: GI Palp: Yes Soft to palpation and No Tenderness to palpation present (GI) Auscultation: normal bowel sounds Skin: General skin exam: normal color, rashes and/or lesions noted and no erythema Other: Warm Neuro: Cranial nerves: Yes Equal, round and reactive pupils present Speech: normal speech Other: No obvious focal deficit or facial asymmetry Extrem: General: no edema Other: Normal capillary refills Intact distal pulses. Objective Data Vital Signs Vital Signs: Vital Signs - 24 hr 12/15/21 12:00 12/15/21 14:00 12/15/21 14:25 Temperature 36.4 C Pulse Rate 62 64 Respiratory Rate 20 Blood Pressure 169/64 H 87/43 L Pulse Oximetry 100 12/15/21 14:39 12/15/21 14:49 12/15/21 16:00 Temperature Pulse Rate 62 63 64 Respiratory Rate 18 18 Blood Pressure Pulse Oximetry 12/15/21 16:18 12/15/21 20:00 12/15/21 20:28 Temperature 35.7 C L 36.6 C Pulse Rate 59 L 60 61 Respiratory Rate 24 H 16 18 Blood Pressure 151/45 H 122/48 L Pulse Oximetry 98 99 94 12/15/21 20:38 12/16/21 00:00 12/16/21 02:15 Temperature 36.1 C L Pulse Rate 63 62 59 L Respiratory Rate 18 16 16 Blood Pressure 136/59 L Pulse Oximetry 100 12/16/21 02:21 12/16/21 04:00 12/16/21 07:42 Temperature 36.2 C L 36.6 C Pulse Rate 61 61 75 Respiratory Rate 18 15 20 Blood Pressure 138/44 L 178/56 H Pulse Oximetry 96 100 12/16/21 08:00 12/16/21 08:06 12/16/21 08:30 Temperature Pulse Rate 55 L 60 Respiratory Rate 16 Blood Pressure Pulse Oximetry 99 90 12/16/21 08:37 12/16/21 08:47 12/16/21 10:12 Temperature Pulse Rate 60 63 Respiratory Rate 16 Blood Pressure 123/44 L Pulse Oximetry Intake/Output Intake/Output: Intake & Output 12/13/21 12/14/21 12/15/21 12/16/21 23:59 23:59 23:59 23:59 Intake Total 1410 952 Output Total 1350 725 Balance 60 227 Meds/Results Medications: Active Medications Generic Name Dose Route Start Last Admin Trade Name Freq PRN Reason Stop Dose Admin Acetaminophen 650 mg 12/15/21 06:00 12/16/21 06:32 Acetaminophen 325 Mg Tablet PO 650 mg Q8HR VIRGIE Administration Albuterol 1 puff 12/14/21 22:19 Albuterol Sulfate (*Sp) Aerosol 1 Puff INHALATION Q4H PRN shortness of breath or wheezing Albuterol 2.5 mg 12/15/21 02:00 12/16/21 08:28 Albuterol Sulfate Neb 2.5 Mg/0.5 Ml Inh INHALATION 2.5 mg Q6HRT VIRGIE Administration Aspirin 81 mg 12/15/21 09:00 12/16/21 08:48 Aspirin 81 Mg Enteric Tablet PO 81 mg DAILY VIRGIE Administration Budesonide 0.5 mg 12/15/21 08:00 12/16/21 08:27 Budesonide Respule Neb 0.5 Mg/2 Ml Amp INHALATION 0.5 mg Q12HRT VIRGIE Administration Carbamide Peroxide
[2021-12-16] MEDS: ISOSORBIDE MONONITRATE 30 MG TAB.ER.24H PO (17:00)
--- NOTE | 2021-12-16 19:06 | PM.IMPN ---
Progress Note: A&P Assessment and Plan (1) Macrocytic anemia: Code(s): D53.9 - Nutritional anemia, unspecified Status: Acute (2) Ear pain: Code(s): H92.09 - Otalgia, unspecified ear Status: Acute (3) Hypothyroidism: Code(s): E03.9 - Hypothyroidism, unspecified Status: Acute (4) Hypertension: Code(s): I10 - Essential (primary) hypertension Status: Chronic (5) Coronary artery disease: Code(s): I25.10 - Atherosclerotic heart disease of [place] coronary artery without angina pectoris Status: Chronic (6) Chronic kidney disease, stage 3: Code(s): N18.30 - Chronic kidney disease, stage 3 unspecified Status: Acute (7) Obstructive sleep apnea: Code(s): G47.33 - Obstructive sleep apnea (adult) (pediatric) Status: Acute (8) Chronic obstructive pulmonary disease: Code(s): J44.9 - Chronic obstructive pulmonary disease, unspecified Status: Acute Additional Plan # hypertensive urgency, chest pain -chest pain resolved with blood pressure control -SBP 150s this morning, will continue to trend daily -continue monitor on telemetry, heart rate 57 this morning -will check orthostatics as patient has Parkinson's disease and we do not want to overcorrect blood pressure - cardiology resuming home Imdur at low dose, patient states that a higher dose of Imdur cause dizziness -troponins negative -metoprolol succinate 25 mg daily increased to 50 mg by cardiology, lisinopril 10 mg daily - NPO midnight for nuclear med stress test tomorrow - echocardiogram ordered # acute on chronic hypoxic respiratory failure # COPD -patient previously was on home oxygen therapy 2 L, currently on 3 L oxygen by nasal cannula -patient does not appear to be in acute exacerbation of COPD, pneumonia, heart failure -she is breathing comfortably on the 3 L, she may need home oxygen therapy prescription -we will optimize her COPD -discussed with nurse to wean oxygen to keep oxygen saturation greater than 89% -checking ApneaLink -continue budesonide and albuterol -she does not appear to be floridly fluid overloaded, chest x-ray shows emphysema # Parkinson's disease -continue home medications: Carbidopa levodopa # other chronic conditions -GERD: Continue Protonix -hypo magnesemia: Continue Mag supplement -seasonal allergies: Continue home Claritin -hypothyroidism: Continue home Synthroid -continue home Lamictal -neuropathy: Continue gabapentin, duloxetine -anxiety/depression: On duloxetine, Klonopin -CAD: Continue aspirin, Plavix, Ranexa, Lasix 40 mg daily (will keep diuretic as is) -vitamin-D deficiency Diet: Heart healthy, NPO midnight DVT prophylaxis: SCDs Code status: Full code Disposition: to medical floor, stress test tomorrow Time Spent With Patient Time with patient: 15 - 25 minutes Subjective Date/time seen: 12/16/21 19:06 patient seen examined. She appears to be stable with no new complaints. Patient's blood pressure fluctuates significantly however with her Parkinson's will need to be careful of not over correcting blood pressure. 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 Plan for nuclear stress test tomorrow. Patient denies fever, chills, nausea, vomiting, diarrhea , chest pain , dyspnea. Review of Systems Review of Systems: All systems reviewed & are unremarkable except as noted in HPI and below Exam Narrative: - GENERAL: Pleasant older woman in no acute distress breathing comfortably on 3 L oxygen - EYES: EOMI. Anicteric. - HENT: Moist mucous membranes. - LUNGS: Clear to auscultation bilaterally, no wheezing, rhonchi, or rales. On 3 L oxygen by nasal cannula. Nonlabored respirations - CARDIOVASCULAR: Regular rate and rhythm. No murmur. No JVD. - ABDOMEN: Soft, non-tender and non-distended. No palpable masses. - EXTREMITIES: No edema. Peripheral pulses 2+. Non-tender. - NEUROLOGIC: No focal neurological deficits.
[2021-12-17] VITALS (20 sets, daily range): BP systolic 95–151; BP diastolic 45–61; PULSE 54–80; RESP 14–19; TEMP 35.8–36.2; O2SAT 89–100; BMI 27.9
[2021-12-17] MEDS: ALBUTEROL SULFATE NEB 2.5 MG/0.5 ML INH INHALATION ×2 (01:55→20:12)
[2021-12-17] MEDS: ACETAMINOPHEN 325 MG TABLET 650 MG PO ×3 (06:43→21:27)
[2021-12-17] MEDS: LEVOTHYROXINE SODIUM 75 MCG TABLET PO (06:43)
[2021-12-17] MEDS: LEVOTHYROXINE SODIUM 100 MCG TABLET PO (06:43)
[2021-12-17 07:45] LABS: Anion Gap 6 mmol/L (8-16); Blood Urea Nitrogen 46 mg/dL (7-17); Calcium 8.7 mg/dL (8.4-10.2); Carbon Dioxide 32 mmol/L (22-30); Chloride 96 mmol/L (98-107); Estimated CRCL calculation 28 ml/min; Estimated Glomerular Filt Rate 32; Glucose 89 mg/dL (65-110); Potassium 4.8 mmol/L (3.4-5.0); Sodium 134 mmol/L (137-145)
--- NOTE | 2021-12-17 10:54 | PM.PNCARD ---
Progress Note: A&P Assessment and Plan (1) Coronary artery disease: Code(s): I25.10 - Atherosclerotic heart disease of [place] coronary artery without angina pectoris Status: Chronic Assessment and Plan: Hx CAD with PCI in 2009 (2) Chest pain: Code(s): R07.9 - Chest pain, unspecified Status: Acute Assessment and Plan: Atypical chest pain in patient with Hx of CAD, she had prior PCI in 2010, negative trop and normal EKG, poorly tolerated Isordil, possibly poor compliance TTE ordered Metoprolol to 50 mg daily Increase Imdur to 30 mg at night since she has dizziness and falls in day time with NTG Cont ASA, statin and lisinopril 10 mg daily Nuclear stress test earlier this morning showed normal myocardial perfusion at rest and during stress with left ventricular ejection fraction measuring >70% (3) Aortic stenosis: Code(s): I35.0 - Nonrheumatic aortic (valve) stenosis Status: Acute Assessment and Plan: murmur on exam. She tells me she has a known murmur. TTE has been ordered to evaluate for valvular abnormalities Subjective Date/time seen: 12/17/21 0844 Interval history: Cardiology follow up for chest pain No acute events overnight. Feels fine this morning. Denies any chest pain or shortness of breath. Review of Systems Review of Systems: All systems reviewed & are unremarkable except as noted in HPI and below Exam Const: General: comfortable and no acute distress Other: Able to lie flat HENMT: General nose exam: Normal nares present and no epistaxis Mouth: Yes moist mucous membranes Eyes: Sclera: sclerae normal Pupils: Equal, round and reactive pupils present Neck: Neck: supple and no JVD Carotids: no bruits Resp: Auscultation: clear to auscultation bilaterally and lung sounds not diminished Other: No chest wall tenderness Cardio: Rate: regular rate Rhythm: regular rhythm Heart sounds: no gallops, Murmur heart sound present systolic II/ and at the base and no rubs GI: Auscultation: normal bowel sounds Skin: General skin exam: normal color, rashes and/or lesions noted and no erythema Other: Warm Neuro: Cranial nerves: Yes Equal, round and reactive pupils present Speech: normal speech Extrem: General: no edema Other: Intact distal pulses. Objective Data Vital Signs Vital Signs: Vital Signs - 24 hr 12/16/21 12:00 12/16/21 13:50 12/16/21 13:59 Temperature Pulse Rate 59 L 64 64 Respiratory Rate 18 16 Blood Pressure Pulse Oximetry 12/16/21 14:00 12/16/21 16:00 12/16/21 17:13 Temperature 36.3 C L 36.6 C Pulse Rate 63 63 95 Respiratory Rate 18 18 Blood Pressure 142/53 H 168/62 H Pulse Oximetry 92 95 12/16/21 20:00 12/16/21 20:02 12/16/21 20:14 Temperature Pulse Rate 62 61 62 Respiratory Rate 18 16 Blood Pressure Pulse Oximetry 92 12/16/21 22:00 12/17/21 00:00 12/17/21 01:55 Temperature 36.7 C Pulse Rate 64 54 L 56 L Respiratory Rate 16 16 Blood Pressure 114/52 L Pulse Oximetry 98 12/17/21 02:02 12/17/21 04:00 12/17/21 06:00 Temperature 35.8 C L Pulse Rate 55 L 55 L 68 Respiratory Rate 16 16 Blood Pressure 95/61 L Pulse Oximetry 99 12/17/21 08:15 Temperature Pulse Rate Respiratory Rate Blood Pressure Pulse Oximetry 93 Intake/Output Intake/Output: Intake & Output 12/14/21 12/15/21 12/16/21 12/17/21 23:59 23:59 23:59 23:59 Intake Total 1410 1432 0 Output Total 1350 725 600 Balance 60 707 -600 Meds/Results Medications: Active Medications Generic Name Dose Route Start Last Admin Trade Name Freq PRN Reason Stop Dose Admin Acetaminophen 650 mg 12/15/21 06:00 12/17/21 06:43 Acetaminophen 325 Mg Tablet PO 650 mg Q8HR VIRGIE Administration Albuterol 1 puff 12/14/21 22:19 Albuterol Sulfate (*Sp) Aerosol 1 Puff INHALATION Q4H PRN shortness of breath or wheezing Albuterol 2.5 mg 12/15/21 02:00
[2021-12-17] MEDS: PANTOPRAZOLE 40 MG TABLET PO (12:43)
[2021-12-17] MEDS: DULoxetine HCL 60 MG CAPSULE.DR 120 MG PO ×2 (12:43→21:26)
[2021-12-17] MEDS: lisinopriL 10 MG TABLET PO (12:44)
[2021-12-17] MEDS: lamoTRIgine 100 MG TABLET PO ×2 (12:44→21:26)
[2021-12-17] MEDS: GABAPENTIN 300 MG CAPSULE PO ×2 (12:44→21:26)
[2021-12-17] MEDS: FUROSEMIDE 40 MG TABLET PO (12:44)
[2021-12-17] MEDS: RANOLAZINE 500 MG TAB.ER.12H 1000 MG PO ×2 (12:44→21:27)
[2021-12-17] MEDS: CARBIDOPA/LEVODOPA 12.5/50 MG TABLET 1 TABLET PO ×3 (12:44→21:26)
[2021-12-17] MEDS: ASPIRIN 81 MG ENTERIC TABLET PO (12:44)
[2021-12-17] MEDS: FLUTICASONE PROPIONATE 0.05% NA SPR 16 GM BTL (*BKC) 1 SPRAY NASAL (12:45)
[2021-12-17] MEDS: METOPROLOL SUCCINATE EXT REL 50 MG TABCR PO (12:45)
[2021-12-17] MEDS: MAGNESIUM OXIDE 400 MG TABLET PO (12:45)
[2021-12-17] MEDS: LORATADINE 10 MG TABLET PO (12:45)
[2021-12-17] MEDS: CLOPIDOGREL BISULFATE 75 MG TABLET PO (12:45)
[2021-12-17] MEDS: clonazePAM (*CRX) 0.25 MG TABLET PO (12:51)
--- NOTE | 2021-12-17 14:58 | EST_ITS ---
Patient Info Name: Eunice Simpson Age: 71 years : 1950 Gender: Female Ht: 63 in Wt: 164 lbs BSA: 1.84 m2 HR: 55 bpm BP: 186 / 64 mmHg Heart Rhythm: Sinus Rhythm Exam Date: 12/17/2021 8:34 AM Exam Location: [facility] Stress Patient Status: Inpatient Admit Date: 12/15/2021 Staff Ordering Physician: Yosi Coleman MD Attending Provider: Afsaneh Hester M.A., MD Ref[facility]: [facility] ; Exercise Technologist: Radha Bajwa, CT Nurse: delma haile Exam Type: CA stress shital w NM Study Info Indications R07.9 - Chest pain, unspecified A regadenoson stress test was performed. Summary 1. No abnormal ST/T wave changes with Lexiscan. 2. No arrhythmias were observed during the examination. 3. Please correlate with nuclear medicine images, reported separately. 4. No chest discomfort with stress test. Protocol: Lexiscan Stress ECG Details Stage: REST Duration (min): 4 min : 42 sec HR (bpm): 55 SBP (mmHg): 186 DBP (mmHg): 64 Stage: REST Duration (min): 14 min : 24 sec HR (bpm): 55 SBP (mmHg): 186 DBP (mmHg): 64 Stage: STAGE 1 Duration (min): 1 min : 0 sec HR (bpm): 59 SBP (mmHg): 171 DBP (mmHg): 49 Stage: RECOVERY Duration (min): 1 min : 0 sec HR (bpm): 68 SBP (mmHg): 171 DBP (mmHg): 49 Stage: RECOVERY Duration (min): 2 min : 0 sec HR (bpm): 66 SBP (mmHg): 171 DBP (mmHg): 49 Stage: RECOVERY Duration (min): 3 min : 0 sec HR (bpm): 64 SBP (mmHg): 171 DBP (mmHg): 49 Stage: RECOVERY Duration (min): 3 min : 17 sec HR (bpm): 64 SBP (mmHg): 165 DBP (mmHg): 52 Rest HR: 55 bpm Peak HR: 68 bpm Rest Sys BP: 186 mmHg Peak Sys BP: 171 mmHg Max Pred HR: 150 bpm % Max Pred HR: 45 % Target HR: 128 bpm Max RPP: 11,628 bpm*mmHg Termination Reason: Completed protocol Total Time: 1 min : 0 sec Rest Jerome BP: 64 mmHg Peak Jerome BP: 49 mmHg Total Dose: 0.4 mg Resting ECG Sinus Bradycardia short WA,QT prolongation. Stress ECG No abnormal ST/T wave changes with Lexiscan. Arrhythmias No arrhythmias were observed during the examination. Report Signatures
--- NOTE | 2021-12-17 17:22 | PM.IMPN ---
Progress Note: A&P Assessment and Plan (1) Chest pain: Code(s): R07.9 - Chest pain, unspecified Status: Acute Assessment and Plan: Patient presents with CP. BP elevated and prsumably CP better with better control of blood pressure. Trop negative x3. EKG showing NSR with short MD interval. CXR showing emphysema. Lexiscan stress test performed and showing no evidence of areas of ischemia. LVEF was 70%. Echo pending. Chest pain has resolved. Echo pending. Echo also to assess for Ao stenosis. (2) Coronary artery disease: Code(s): I25.10 - Atherosclerotic heart disease of [place] coronary artery without angina pectoris Status: Chronic Assessment and Plan: Patient with CAD with history of GA and stents. Continue aspirin, clopidogrel, isosorbide, metoprolol, and ranolazine. Cardiology adjusting her mediations. She is allergic to statins. (3) Macrocytic anemia: Code(s): D53.9 - Nutritional anemia, unspecified Status: Acute Assessment and Plan: Macrocytic anemia. Hgb was 9.3 in August and 9.1 here. Iron studies consistent with minor anemia of chronic disease. B12 low end of normal. Check MMA. She has lost a quite a bit of weight in the last several years and admits that she does not have a great appetite or oral intake but albumin normal. (4) Chronic obstructive pulmonary disease: Code(s): J44.9 - Chronic obstructive pulmonary disease, unspecified Status: Acute Assessment and Plan: Stable. No wheezing. CXR showing emphysema. No acute issues. Continue maintenance inhalers. (5) Ear pain: Code(s): H92.09 - Otalgia, unspecified ear Status: Acute Assessment and Plan: Mostly on the right. She reported blood coming from that ear sometime last week. Both auditory canals are impacted with cerumen and ear drops ordered. (6) Hypothyroidism: Code(s): E03.9 - Hypothyroidism, unspecified Status: Acute Assessment and Plan: TSH normal. Continue levothyroxine (7) Hypertension: Code(s): I10 - Essential (primary) hypertension Status: Chronic Assessment and Plan: Blood pressures were elevated on admission and medications adjusted. She is having HoTN events at times. Monitor closely. (8) Chronic kidney disease, stage 3: Code(s): N18.30 - Chronic kidney disease, stage 3 unspecified Status: Acute Assessment and Plan: Baseline 1-1.6 over the past few years. Cr 1.4 on admission that initially improved to 1.1 but now up to 1.6. Related to transient HoTN? Continue to follow. (9) Obstructive sleep apnea: Code(s): G47.33 - Obstructive sleep apnea (adult) (pediatric) Status: Acute Assessment and Plan: She is symptomatic and reports that her insurance company had previously declined to pay for the CPAP. Apnea link is mildly positive with AHI 8.9 and RI 10.3. Will need split night sleep study. Additional Plan # Other chronic conditions -Parkinson's disease: Continue Sinemet -GERD: Continue Protonix -Hypomag: Continue Mag supplement -Seasonal allergies: Continue home Claritin -Neuropathy: Continue gabapentin, duloxetine -Anxiety/depression: On duloxetine, Klonopin and lamictal -DVT Prophylaxis: SCDs Subjective Date/time seen: 12/17/21 17:22 Interval history: 71yo female with COPD, CAD here for chest pain. Assuming care. Chart reviewed. Patient slept poorly last night. No nausea or vomiting. No further chest pain. She had a stress test earlier today but denies any chest pain with stress test. She was short of breath last night that is better today. Exam Narrative: AF 96.6 142/49 80 19 94% ra Gen - NARD Chest - few scattered rhonchi, nml RR CV - RRR S1/S2 with 2/6 systolic murmur RUSB. Abd - Soft, NT/ND, Positive BS Ext - No pedal edema Psych - Nml mood and affect Skin - Warm and dry Objective Data Vital Signs Vital Signs: Vi
[2021-12-17] MEDS: BUDESONIDE RESPULE NEB 0.5 MG/2 ML AMP INHALATION (20:13)
[2021-12-18] VITALS (13 sets, daily range): BP systolic 125–128; BP diastolic 41–48; PULSE 55–76; RESP 16–20; TEMP 36.1–36.2; O2SAT 91–98
--- NOTE | 2021-12-18 | ECHO_ITS ---
Patient Info Name: Eunice Simpson Age: 71 years : 1950 Gender: Female Ht: 63 in Wt: 164 lbs BSA: 1.84 m2 BP: 128 / 41 mmHg Heart Rhythm: Sinus Rhythm Technical Quality: Fair Exam Date: 12/18/2021 9:14 AM Exam Location: [facility] [place] Patient Status: Inpatient Admit Date: 12/15/2021 Staff Ordering Physician: Yosi Coleman MD Hydrology Technician: Barbie Alanis RDCS Attending Provider: Afsaneh Hester M.A., MD Referring Physician: [facility] ; Exam Type: CA echo doppler color flow Study Info Indications - Complete two-dimensional, color flow and Doppler transthoracic echocardiogram is performed. Summary 1. Complete two-dimensional, color flow and Doppler transthoracic echocardiogram is performed. 2. Normal LV size, moderate LVH, normal LV systolic function, ejection fraction about 70%; grade 1 diastolic dysfunction with elevated left atrial pressures. Moderate-severe left atrial enlargement. Moderate mitral annular calcification, trivial MR. Mild aortic valve calcification, mild aortic stenosis, maximum velocity 1.5 m/sec, mean gradient 5 mmHg. Trivial TR, RVSP 23 mmHg. Left Ventricle Left ventricular chamber dimension is normal. Left ventricular systolic function is normal, estimated at 65-70%. There is moderately increased left ventricular wall thickness. The left ventricular diastolic function is grade I diastolic dysfunction. Right Ventricle Right ventricular chamber dimension is normal. Right ventricular systolic function is normal. Left Atria Left atrial chamber dimension is moderately enlarged. Right Atria Right atrial chamber dimension is normal. Aortic Valve There is mild aortic valve stenosis with a peak velocity of 156 cm/s, mean gradient of 5 mmHg, and aortic valve area of 2.3 cm2. There is mild aortic valve calcification. Pulmonic Valve The pulmonic valve is normal. Mitral Valve There is trace mitral valve regurgitation. The mitral valve annulus is moderately calcified. Tricuspid Valve The tricuspid valve leaflets are normal. Inferior Vena Cava Normal inferior vena cava with >50% collapse upon inspiration consistent with normal right atrial pressure, 10 mmHg. Left Ventricular Outflow Tract Name Value Normal LVOT 2D LVOT Diameter 2.0 cm LVOT Doppler LVOT Peak Gradient 6 mmHg LVOT Mean Gradient 3 mmHg LVOT VTI 26 cm LVOT VTI/AV VTI Ratio 0.7 LVOT Stroke Volume 82 ml LVOT CO 5.0 l/min LVOT CI 2.7 l/min/m2 Pulmonic Valve Name Value Normal RVOT Doppler RVOT Peak Gradient 3 mmHg PV Doppler PV Pea
[2021-12-18] MEDS: ALBUTEROL SULFATE NEB 2.5 MG/0.5 ML INH INHALATION ×3 (01:51→14:52)
[2021-12-18] MEDS: ACETAMINOPHEN 325 MG TABLET 650 MG PO ×2 (06:02→12:58)
[2021-12-18] MEDS: LEVOTHYROXINE SODIUM 75 MCG TABLET PO (06:03)
[2021-12-18] MEDS: LEVOTHYROXINE SODIUM 100 MCG TABLET PO (06:03)
[2021-12-18 06:06] LABS: Hematocrit 28.2 % (37.0-47.0); Hemoglobin 8.9 g/dL (12.0-15.0); Mean Corpuscular HGB Conc 31.6 g/dl (32-36); Mean Corpuscular Hemoglobin 32.4 pg (26-34); Mean Corpuscular Volume 102.5 fl (80-100); Mean Platelet Volume 9.3 fl (7.4-10.4); Platelet Count Result 172 k/mm3 (150-375); Red Blood Count 2.75 M/mm3 (4.2-5.4); Red Cell Distribution Width 13.6 % (11.5-14.5)
[2021-12-18 06:16] LABS: Anion Gap 8 mmol/L (8-16); Blood Urea Nitrogen 47 mg/dL (7-17); Calcium 8.7 mg/dL (8.4-10.2); Carbon Dioxide 31 mmol/L (22-30); Chloride 97 mmol/L (98-107); Estimated CRCL calculation 28 ml/min; Estimated Glomerular Filt Rate 32; Glucose 88 mg/dL (65-110); Magnesium 2.2 mg/dL (1.6-2.3); Potassium 4.4 mmol/L (3.4-5.0); Sodium 136 mmol/L (137-145)
[2021-12-18] MEDS: lamoTRIgine 100 MG TABLET PO ×2 (09:13→17:16)
[2021-12-18] MEDS: LORATADINE 10 MG TABLET PO (09:13)
[2021-12-18] MEDS: FLUTICASONE PROPIONATE 0.05% NA SPR 16 GM BTL (*BKC) 1 SPRAY NASAL (09:13)
[2021-12-18] MEDS: GABAPENTIN 300 MG CAPSULE PO ×2 (09:13→17:15)
[2021-12-18] MEDS: ASPIRIN 81 MG ENTERIC TABLET PO (09:14)
[2021-12-18] MEDS: PANTOPRAZOLE 40 MG TABLET PO (09:14)
[2021-12-18] MEDS: DULoxetine HCL 60 MG CAPSULE.DR 120 MG PO (09:14)
[2021-12-18] MEDS: FUROSEMIDE 40 MG TABLET PO (09:14)
[2021-12-18] MEDS: CLOPIDOGREL BISULFATE 75 MG TABLET PO (09:14)
[2021-12-18] MEDS: RANOLAZINE 500 MG TAB.ER.12H 1000 MG PO (09:14)
[2021-12-18] MEDS: MAGNESIUM OXIDE 400 MG TABLET PO (09:14)
[2021-12-18] MEDS: BUDESONIDE RESPULE NEB 0.5 MG/2 ML AMP INHALATION (09:41)
[2021-12-18] MEDS: CARBIDOPA/LEVODOPA 12.5/50 MG TABLET 1 TABLET PO ×3 (10:18→17:15)
[2021-12-18] MEDS: clonazePAM (*CRX) 0.25 MG TABLET PO (10:21)
--- NOTE | 2021-12-18 15:07 | PM.DS ---
DS: Admitting Diagnosis Discharge Date 12/18/21 Admitting Diagnosis Chest pain DS: Discharge Diagnosis Discharge Diagnosis (1) Chest pain: Code(s): R07.9 - Chest pain, unspecified Status: Acute Assessment and Plan: Patient presented with chest pain. BP was elevated and noted state chest pain improved with better blood pressure control. Troponin was negative x3. EKG showing NSR with short MI interval. CXR showing emphysema. Lexiscan stress test performed and showing no evidence of areas of ischemia. LVEF was 70%. Echo showing EF 70% and Grade I diastolic dysfunction. Chest pain resolved. [place] non-cardiac chest pain. (2) Coronary artery disease: Code(s): I25.10 - Atherosclerotic heart disease of [place] coronary artery without angina pectoris Status: Chronic Assessment and Plan: Patient with CAD with history of AL and stents. We continued aspirin, clopidogrel, isosorbide, metoprolol, and ranolazine. Cardiology adjusted her mediations. She is allergic to statins. (3) Macrocytic anemia: Code(s): D53.9 - Nutritional anemia, unspecified Status: Acute Assessment and Plan: Patient noted to have a macrocytic anemia. Hgb was 9.3 in August and 9.1 here. Iron studies consistent with anemia of chronic disease. B12 low end of normal. MMA level pending. She has lost a quite a bit of weight in the last several years and admits that she does not have a great appetite or oral intake but albumin was normal. She was given an injection of B12 and started on oral B12. (4) Chronic obstructive pulmonary disease: Code(s): J44.9 - Chronic obstructive pulmonary disease, unspecified Status: Acute Assessment and Plan: Stable. No wheezing. CXR showing emphysema. No acute issues overall. We continued maintenance inhalers. (5) Ear pain: Code(s): H92.09 - Otalgia, unspecified ear Status: Acute Assessment and Plan: Mostly on the right. She reported blood coming from that ear sometime last week. Both auditory canals were impacted with cerumen and ear drops ordered. (6) Hypothyroidism: Code(s): E03.9 - Hypothyroidism, unspecified Status: Acute Assessment and Plan: TSH was normal. We continued levothyroxine (7) Hypertension: Code(s): I10 - Essential (primary) hypertension Status: Chronic Assessment and Plan: Blood pressures were elevated on admission and medications were adjusted. Blood pressures much better controlled. (8) Chronic kidney disease, stage 3: Code(s): N18.30 - Chronic kidney disease, stage 3 unspecified Status: Acute Assessment and Plan: Baseline 1-1.6 over the past few years. Cr 1.4 on admission that initially improved to 1.1 but now up to 1.6 and stable. [place] patient within her baseline. Will repeat BMP in 1 week (9) Obstructive sleep apnea: Code(s): G47.33 - Obstructive sleep apnea (adult) (pediatric) Status: Acute Assessment and Plan: She reported that her insurance company had previously declined to pay for the CPAP. Apnea link was mildly positive with AHI 8.9 and RI 10.3 but not hypoxic. Will need split night sleep study as outpatient. DS: Summary Hospital Course Reason for hospitalization: 71yo female with COPD, CAD here for chest pain. Please see H&P for details Hospital Course: Please see above for details of hospital course Status at Discharge Cognitive/behavioral status at discharge: Stable Time Spent with Patient Time attestation: Total time spent providing and/or coordinating discharge services: 35 minutes Time spent: Greater than 30 minutes Exam Narrative: AF 96.9 124/48 72 20 98% Gen - NARD Chest - minor inspiratory crackles left base that improved with deep inspiration, nml RR CV - RRR S1/S2 Abd - Soft, NT/ND, Positive BS Ext - No pedal edema Psych - Nml mood and affect Skin - Warm and dry DS:
--- NOTE | 2021-12-18 15:57 | PC.NURSE ---
calling report to Gabriele RENDON, pt to transfer via emt's
[2021-12-18 16:10] LABS: EDCOVIDSCREEN Negative (Negative)
--- NOTE | 2021-12-18 16:34 | PC.NURSE ---
still have not received vitamin b12 injection pharmacy called.
[2021-12-18] MEDS: CYANOCOBALAMIN INJ 1,000 MCG/ML VIAL 1000 MCG IM (17:15)
[2021-12-18] MEDS: ISOSORBIDE MONONITRATE 30 MG TAB.ER.24H PO (17:16)
[2021-12-21 12:09] LABS: Methylmalonic Acid 699 nmol/L (87-318)
== END 2021-12-18 19:20 | DRG 313 ==
LOC: ANHED 14:38 → ANHIMU 16:26 → ANH3MEDSUR 12-17 13:38 → ANHIMU 12-19 15:56
PROVIDERS: Physician Assistant; Student in an Organized Health Care Education/Training Program; Admitting Provider Internal Medicine; Emergency Provider Emergency Medicine; PCP Physician Assistant; Visit Provider Internal Medicine
DX: R07.89 Other chest pain (principal); I13.0 Hypertensive heart and chronic kidney disease with heart failure and stage 1 through stage 4 chronic kidney disease, or unspecified chronic kidney disease; J96.11 Chronic respiratory failure with hypoxia; J43.9 Emphysema, unspecified; I25.10 Atherosclerotic heart disease of native coronary artery without angina pectoris; F17.200 Nicotine dependence, unspecified, uncomplicated; Z20.822 Contact with and (suspected) exposure to COVID-19; E03.9 Hypothyroidism, unspecified; G20 Parkinson's disease; I50.9 Heart failure, unspecified; H92.09 Otalgia, unspecified ear; D53.9 Nutritional anemia, unspecified; N18.30 Chronic kidney disease, stage 3 unspecified; G47.33 Obstructive sleep apnea (adult) (pediatric); F31.9 Bipolar disorder, unspecified; Z99.81 Dependence on supplemental oxygen; I35.0 Nonrheumatic aortic (valve) stenosis; M79.7 Fibromyalgia; I25.2 Old myocardial infarction; Z95.5 Presence of coronary angioplasty implant and graft; Z86.718 Personal history of other venous thrombosis and embolism; I16.0 Hypertensive urgency; K21.9 Gastro-esophageal reflux disease without esophagitis; E55.9 Vitamin D deficiency, unspecified; Z79.899 Other long term (current) drug therapy; G62.9 Polyneuropathy, unspecified; F41.9 Anxiety disorder, unspecified
CPT/HCPCS: 36415; 71045; 78452; 80048; 80053; 82607; 82728; 82746; 83540; 83550; 83690; 83735; 83921; 84443; 84484; 85025; 85027; 85610; 85730; 87426; 93005; 93017; 93306; 94640; 94762; 97161; 97165; 99285; A9270; A9502; C9803; G0378; J2785; J3420

== ENCOUNTER 2021-12-28 13:02 | Outpatient (CLI) | payer MEDICARE, MEDICAID, SELFPAY ==
--- NOTE | ~2021-12-28 | MM_ITS ---
EXAMINATION: MM screening [facility] BI w juani HISTORY: Screening mammogram TECHNIQUE: Craniocaudal and mediolateral oblique 3-D tomosynthesis images were obtained and synthetic 2-D images were generated. CAD analysis was submitted and interpreted. COMPARISON: 03/01/2019 11/24/2015, 11/28/2009 BREAST PARENCHYMAL COMPOSITION: There are scattered areas of fibroglandular density. FINDINGS: A chronic oil cyst with dystrophic calcification is seen anteriorly in the left breast. The re is no suspicious mass, calcification, or architectural distortion to suggest malignancy in either breast. There has been no suspicious interval change. IMPRESSION: 1. No mammographic evidence of malignancy. 2. Recommend routine screening mammography in one year. BI-RADS Category 2: Benign finding(s). Reviewed, dictated and finalized at location A.
== END 2021-12-28 13:03 | disposition home or self-care (01) ==
LOC: CHSIMG 13:03
PROVIDERS: PCP Internal Medicine; Visit Provider Internal Medicine
DX: Z12.31 Encounter for screening mammogram for malignant neoplasm of breast (principal)
CPT/HCPCS: 77063; 77067

== ENCOUNTER 2022-03-29 09:38 | Outpatient (CLI) | payer MEDICARE, OTHER, MEDICAID, SELFPAY | END 2022-03-29 09:39 | disposition home or self-care (01) | LOC: ANHAUDIO 09:41 | PROVIDERS: PCP Internal Medicine; Visit Provider Internal Medicine | DX: H90.3 Sensorineural hearing loss, bilateral (principal) | CPT/HCPCS: 92557; 92567 ==